=== PATIENT | female | born 1940 | race Caucasian/White ===

== ENCOUNTER 2021-07-31 18:58 | Observation (INO) | payer OTHER ==
[2021-07-31 19:51] LABS: Absolute Lymphocytes (CBC) 1.2 K/uL (0.7-4.9); Hematocrit 41.1 % (36.0-45.0); Lymphocytes % 15.5 % (15.3-44.8); MPV 8.9 fL (7.6-11.3); RBC Red Blood Cell Count 4.41 M/uL (3.86-4.86)
[2021-07-31 19:55] LABS: Protime INR 0.94
[2021-07-31 20:03] LABS: BUN Blood Urea Nitrogen 17 mg/dL (7-18); Bicarbonate 25 mmol/L (21-32); Glucose Level 105 mg/dL (74-106); Potassium 3.8 mmol/L (3.5-5.1); Sodium Level 136 mmol/L (136-145)
--- NOTE | 2021-07-31 20:34 | RAD REPORT ---
EXAM DESCRIPTION: CT - Ct Stroke Brain Wo Cont - 07/31/2021 8:27 pm CLINICAL HISTORY: Slurred speech/CVA COMPARISON: none TECHNIQUE: Computed axial tomography of the head was obtained. All CT scans are performed using dose optimization technique as appropriate and may include automated exposure control or mA/KV adjustment according to patient size. FINDINGS: An intracranial bleed is not seen . The ventricles are normal in caliber. No extra-axial fluid collection is noted. No significant hypodense areas within the brain seen Fluid within the sinuses/ mastoids is not seen. IMPRESSION: No acute intracranial abnormality is seen. If patient's symptoms persist MRI of the bra in would be recommended. Arie of the emergency room was notified at 8:30 p.m. July 31, 2021
--- NOTE | 2021-07-31 20:43 | RAD REPORT ---
EXAM DESCRIPTION: Annetta Angio07/31/2021 8:27 pm CLINICAL HISTORY: Slurred speech/CVA COMPARISON: None TECHNIQUE: 50 cc Isovue 370 was administered intravenously. 3D MIP reconstruction performed All CT scans are performed using dose optimization technique as appropriate and may include automated exposure control or mA/KV adjustment according to patient size. FINDINGS: Mild narrowing proximal right subclavian artery. Mild plaque within the common carotid, internal carotid and external carotid arteries bilaterally. Vertebral arteries are codominant. No significant abnormality displayed. No dissection seen. IMPRESSION: Mild plaque within the carotid arteries NASCET criteria used. Mild 0-49% stenosis Moderate 50-69% stenosis Severe 70-99% stenosis
--- NOTE | 2021-07-31 20:44 | RAD REPORT ---
EXAM DESCRIPTION: CTHead angio07/31/2021 8:27 pm CLINICAL HISTORY: CVA/slurred speech COMPARISON: None TECHNIQUE: CT angiogram of the head was obtained. 3D MIPS reconstruction performed. All CT scans are performed using dose optimization technique as appropriate and may include automated exposure control or mA/KV adjustment according to patient size. FINDINGS: Mild plaque within the distal internal carotid arteries. The basilar, anterior cerebral, middle cerebral and posterior cerebral arteries are normal caliber. An aneurysm is not seen. A significant stenosis is not noted. IMPRESSION: No significant abnormality is displayed
--- NOTE | 2021-07-31 20:45 | RAD REPORT ---
EXAM DESCRIPTION: Sandra Single View07/31/2021 8:17 pm CLINICAL HISTORY: tia COMPARISON: none FINDINGS: The lungs appear clear of acute infiltrate. The heart is mildly enlarged IMPRESSION: No acute abnormalities displayed
--- NOTE | 2021-07-31 21:11 | ER ---
Nurse's Notes [facility] Name: Janene Sierra Age: 80 yrs Sex: Female : 1940 Arrival Date: 07/31/2021 Time: 19:04 Bed 5 Private MD: Diagnosis: Transient cerebral ischemic attack, unspecified;Weakness Presentation: 07/31 19:11 Chief complaint: Patient's son or daughter states: "We think she had a mini stoke. She as6 speech was slurred, and her left side of her mouth was drooping. All the symptoms stopped now" pt being seen by Dr. Mcintyre in triage. Coronavirus screen: At this time, the client does not indicate any symptoms associated with coronavirus-19. Ebola Screen: No symptoms or risks identified at this time. No acute neurological deficit is noted. Initial Sepsis Screen: Does the patient meet any 2 criteria? No. Patient's initial sepsis screen is negative. Does the patient have a suspected source of infection? No. Patient's initial sepsis screen is negative. Risk Assessment: Do you want to hurt yourself or someone else? Patient reports no desire to harm self or others. Onset of symptoms was July 31, 2021 at 17:00. 19:11 Method Of Arrival: Wheelchair as6 19:11 Acuity: YULIA 3 as6 Historical: - Allergies: 19:20 Codeine; as6 - Home Meds: 19:20 levothyroxine 50 mcg tab 1 tab once daily [Active]; "blood pressure" [Active]; as6 - PMHx: 19:20 Hypothyroidism; Hypertensive disorder; Arthritis; as6 - PSHx: 19:20 None; as6 - Immunization history:: Client reports having NOT received the Covid vaccine. - Social history:: Smoking status: Patient denies any tobacco usage or history of. - Family history:: not pertinent. - Hospitalizations: : No recent hospitalization is reported. Screenin:37 Abuse screen: Denies threats or abuse. Nutritional screening: No deficits noted. jb4 Tuberculosis screening: No symptoms or risk factors identified. Fall Risk None identified. Assessment: 21:37 VAN Scoring: Arm Drift: Patients demonstrates NO arm weakness. Patient is VAN Negative. jb4 Patient has been NPO before screening. The patient is alert, and able to follow commands. The patient does not exhibit slurred or garbled speech. The patient is not exhibiting difficulty speaking. The patient is exhibiting difficulty understanding words. The patient is unable to swallow own secretions without drooling or the need for suction. Patient tolerated one teaspoon of water. No drooling, immediate coughing, gurgling, or clearing of the throat was noted. The patient tolerated 90mL of water. No drooling, immediate coughing, gurgling, or clearing of the throat was noted. The patient passed the bedside swallow screening. Oral medications may be given as ordered. Contact Physician for further diet orders. Provider notified of bedside swallow screening results: Joshua Mcintyre MD. 21:37 General: Appears in no apparent distress. comfortable, Behavior is calm, cooperative, jb4 appropriate for age. Pain: Denies pain. Neuro: Level of Consciousness is awake, alert, obeys commands, Oriented to person, place, time, situation. Cardiovascular: Patient's skin is warm and dry. Respiratory: Airway is patent Respiratory effort is even, unlabored, Respiratory pattern is regular, symmetrical. GI: No signs and/or symptoms were reported involving the gastrointestinal system. : No signs and/or symptoms were reported regarding the genitourinary system. EENT: No signs and/or symptoms were reported regarding the EENT system. Derm: Skin is intact, Skin is pink, warm \\T\\ dry. Musculoskeletal: Circulation, motion, and sensation intact. Range of motion: intact in all extremities. 21:37 T-PA (Activase) Screening: Contraindications: Rapidly improving condition or minor jb4 deficit: Yes. 23:33 Reassessment: Patient appears in no apparent distress at this time. Patient and/or jb4 family updated on plan of care and expected duration. Pain level reassessed. Patient is alert, oriented x 3, equal unlabored respirations, skin warm/dry/pink. Vital Signs: 19:11 BP 158 / 63; Pulse 61; Resp 18; Temp 98.1(O); Pulse Ox 98% on R/A; Weight 54.43 kg (R); as6 Height 5 ft. 1 in. (154.94 cm) (R); Pain 0/10; 23:33 BP 161 / 69; Pulse 78; Resp 16; Pulse Ox 100% on R/A; jb4 19:11 Body Mass Index 22.67 (54.43 kg, 154.94 cm) as6 NIH Stroke Scale Scores: 19:29 NIHSS Score: 0 rn 22:19 NIHSS Score: 0 jb4 ED Course: 19:04 Patient arrived in ED. ja2 19:08 Jonathan Mcintyre MD is Attending Physician. rn 19:20 Triage completed. as6 19:22 Arm band placed on. as6 19:35 Inserted saline lock: 20 gauge in right antecubital area, using aseptic technique. as6 Blood collected. 19:40 EKG completed in triage. Results shown to MD. as6 19:40 Ptt, Activated Sent. as6 19:40 Protime (+inr) Sent. as6 19:40 CBC with Diff Sent. as6 19:40 Basic Metabolic Panel Sent. as6 20:18 Stroke CXR 1 View In Process Unspecified. EDMS 20:29 Ct Stroke Brain Wo Cont In Process Unspecified. EDMS 20:29 CT Head Angio In Process Unspecified. EDMS 20:29 CT Neck Angio In Process Unspecified. EDMS 21:09 Joshua Mcintyre MD is Hospitalizing Provider. rn 21:37 Patient has correct armband on for positive identification. Bed in low position. Call 4 light in reach. Side rails up X 1. monitoring specialist on. Pulse ox on. NIBP on. 21:53 José Luis Bates, PRECIOUS is Primary Nurse. jb4 23:33 No provider procedures requiring assistance completed. Patient admitted, IV remains in jb4 place. Administered Medications: 21:47 Drug: Aspirin 325 mg Route: PO; jb4 23:16 Follow up: Response: No adverse reaction jb4 21:47 Drug: foLIC Acid 1 mg Route: IVPB; Site: right antecubital; jb4 23:16 Follow up: Response: No adverse reaction; IV Status: Completed infusion jb4 23:32 Drug: Melatonin 5 mg Route: PO; jb4 08/01 00:00 Follow up: Response: No adverse reaction page hospital Outcome: 07/31 21:10 Decision to Hospitalize by Provider. rn 22:00 Admitted to ER Hold. Please see [facility] for further documentation. jb4 22:00 Condition: stable 22:00 Discharge instructions given to patient, Instructed on the need for admit, Demonstrated understanding of instructions. 08/01 15:11 Patient left the ED. ap3 NIH Stroke Scale - NIH Stroke Score Date: 07/31/2021 Time: 19:29 Total Score = 0 1a. Level of Consciousness (LOC) - 0(Alert) 1b. Level of Consciousness (LOC) (Month \\T\\ Age) - 0(Both) 1c. LOC Commands (Open \\T\\ Closes Eyes/Marketing Research Intern) - 0(Both) 2. Best Gaze (Lateral Gaze Paresis) - 0(Normal) 3. Visual Field Loss - 0(No visual loss) 4. Facial Palsy - 0(Normal) 5a. Left Arm: Motor (10-second hold) - 0(No drift) 5b. Right Arm: Motor (10-second hold) - 0(No drift) 6a. Left Leg: Motor (5-second hold - always test supine) - 0(No drift) 6b. Right Leg: Motor (5-second hold - always test supine) - 0(No drift) 7. Limb Ataxia (finger/nose \\T\\ heel/ward - test with eyes open) - 0(Absent) 8. Sensory Loss (pinprick arms/legs/face) - 0(Normal) 9. Best Language: Aphasia (description/naming/reading) - 0(No aphasia) 10. Dysarthria (speech clarity - read or repeat words) - 0(Normal) 11. Extinction and Inattention (visual/tactile/auditory/spatial/personal) - 0(No abnormality) Initials: precious NIH Stroke Scale - NIH Stroke Score Date: 07/31/2021 Time: 22:19 Total Score = 0 1a. Level of Consciousness (LOC) - 0(Alert) 1b. Level of Consciousness (LOC) (Month \\T\\ Age) - 0(Both) 1c. LOC Commands (Open \\T\\ Closes Eyes/Marketing Research Intern) - 0(Both) 2. Best Gaze (Lateral Gaze Paresis) - 0(Normal) 3. Visual Field Loss - 0(No visual loss) 4. Facial Palsy - 0(Normal) 5a. Left Arm: Motor (10-second hold) - 0(No drift) 5b. Right Arm: Motor (10-second hold) - 0(No drift) 6a. Left Leg: Motor (5-second hold - always test supine) - 0(No drift) 6b. Right Leg: Motor (5-second hold - always test supine) - 0(No drift) 7. Limb Ataxia (finger/nose \\T\\ heel/ward - test with eyes open) - 0(Absent) 8. Sensory Loss (pinprick arms/legs/face) - 0(Normal) 9. Best Language: Aphasia (description/naming/reading) - 0(No aphasia) 10. Dysarthria (speech clarity - read or repeat words) - 0(Normal) 11. Extinction and Inattention (visual/tactile/auditory/spatial/personal) - 0(No abnormality) Initials: jb4 Signatures: Dispatcher [employer] EDMS Jonathan Mcintyre MD MD rn Bryson, James RN RN jb4 Kate Burris RN RN criss3 Luz Maria Kelley Ashby, RN RN as6
--- NOTE | 2021-07-31 21:11 | EDPHYS ---
Physician Documentation [facility] Name: Janene Sierra Age: 80 yrs Sex: Female : 1940 Arrival Date: 07/31/2021 Time: 19:04 Bed 5 Private MD: ED Physician Jonathan Mcintyre HPI: 07/31 19:31 This 80 yrs old Female presents to ER via Wheelchair with complaints of S/S of Possible rn Stroke. 19:31 The patient's problem is reported as a facial droop, on right, weakness, in the left rn upper extremity, in the right side of face. Onset: The symptoms/episode began/occurred at 17:00. Duration: This was a single incident. The symptoms are alleviated by nothing. The symptoms are aggravated by nothing. Associated signs and symptoms: Pertinent positives: weakness, Pertinent negatives: abdominal pain, ataxia, chest pain, confusion, headache, seizure. Severity of symptoms: At their worst the symptoms were moderate in the emergency department the symptoms have resolved. The patient has not experienced similar symptoms in the past. The patient has not recently seen a physician. Pt reports possible "mini stroke", onset was 5pm today, family noticed slurred speech, right lower facial droop, left arm weakness, was unable to lift left arm. Did not try to walk so unaware if had leg weakness. NO trauma. No headache. No chest pain. NO previous CVA or WA. No blood thinners. . Historical: - Allergies: 19:20 Codeine; as6 - Home Meds: 19:20 levothyroxine 50 mcg tab 1 tab once daily [Active]; "blood pressure" [Active]; as6 - PMHx: 19:20 Hypothyroidism; Hypertensive disorder; Arthritis; as6 - PSHx: 19:20 None; as6 - Immunization history:: Client reports having NOT received the Covid vaccine. - Social history:: Smoking status: Patient denies any tobacco usage or history of. - Family history:: not pertinent. - Hospitalizations: : No recent hospitalization is reported. ROS: 19:31 Constitutional: Negative for fever, chills, and weight loss, Eyes: Negative for injury, rn pain, redness, and discharge, Neck: Negative for injury, pain, and swelling, Cardiovascular: Negative for chest pain, palpitations, and edema, Respiratory: Negative for shortness of breath, cough, wheezing, and pleuritic chest pain, Abdomen/GI: Negative for abdominal pain, nausea, vomiting, diarrhea, and constipation, Back: Negative for injury and pain, MS/Extremity: Negative for injury and deformity, Skin: Negative for injury, rash, and discoloration, Neuro: Negative for headache, numbness, tingling, and seizure Exam: 19:31 Constitutional: This is a well developed, well nourished patient who is awake, alert, rn and in no acute distress. Head/Face: Normocephalic, atraumatic. Eyes: Periorbital areas with no swelling, redness, or edema. Cardiovascular: Regular rate and rhythm. No pulse deficits. Respiratory: No increased work of breathing, no retractions or nasal flaring. Abdomen/GI: Soft, non-tender Skin: Warm, dry MS/ Extremity: Pulses equal, no cyanosis. Neuro: Awake and alert, GCS 15, oriented to person, place, time, and situation. Cranial nerves II-XII grossly intact. Motor strength 5/5 in all extremities. Sensory grossly intact. Cerebellar exam normal. Vital Signs: 19:11 BP 158 / 63; Pulse 61; Resp 18; Temp 98.1(O); Pulse Ox 98% on R/A; Weight 54.43 kg (R); as6 Height 5 ft. 1 in. (154.94 cm) (R); Pain 0/10; 23:33 BP 161 / 69; Pulse 78; Resp 16; Pulse Ox 100% on R/A; jb4 19:11 Body Mass Index 22.67 (54.43 kg, 154.94 cm) as6 NIH Stroke Scale Scores: 19:29 NIHSS Score: 0 rn 22:19 NIHSS Score: 0 jb4 MDM: 19:08 Patient medically screened. rn 21:08 Differential diagnosis: CVA, TIA, metabolic disorder. Data reviewed: vital signs, rn nurses notes, lab test result(s), EKG, radiologic studies, CT scan, and as a result, I will admit patient. Counseling: I had a detailed discussion with the patient and/or guardian regarding: the historical points, exam findings, and any diagnostic results supporting the discharge/admit diagnosis, lab results, radiology results, the need for further work-up and treatment in the hospital. Response to treatment: the patient's condition has returned to base line, the patient is now symptom free, and as a result, I will discharge patient. Admission orders: after a detailed discussion of the patient's condition and case, the admit orders are written by me. ED course: No TPA/TNK indicated given complete resolution of symptoms. CTA head and neck neg for LVO. Will admit to hospitalist for TIA w/u.. 07/31 19:23 Order name: Basic Metabolic Panel; Complete Time: 21: rn 07/31 19:23 Order name: CBC with Diff; Complete Time: 21: rn 07/31 19:23 Order name: Protime (+inr); Complete Time: : rn 07/31 19:23 Order name: Ptt, Activated; Complete Time: : rn 08/01 02:12 Order name: COVID-19/FLU A+B (Document "Date of Onset" if Symptomatic) tw5 08/01 03:21 Order name: COVID-19/FLU A+B EDIL 07/31 19:23 Order name: Stroke CXR 1 View; Complete Time: 21: rn 07/31 19:25 Order name: CT Head Angio; Complete Time: 21: rn 07/31 19:25 Order name: CT Neck Angio; Complete Time: 21: rn 07/31 19:27 Order name: Ct Stroke Brain Wo Cont; Complete Time: 21: EDIL 08/01 04:07 Order name: CBC with Automated Diff EDIL 08/01 04:18 Order name: Comprehensive Metabolic Panel EDIL 08/01 04:18 Order name: Lipid Profile EDIL 07/31 19:23 Order name: EKG; Complete Time: 19:23 rn 07/31 19:23 Order name: Accucheck; Complete Time: 21:54 rn 07/31 19:23 Order name: Cardiac monitoring; Complete Time: 21:39 rn 07/31 19:23 Order name: EKG - Nurse/Tech; Complete Time: 19:39 rn 07/31 19:23 Order name: IV Saline Lock; Complete Time: 19:40 rn 07/31 19:23 Order name: Labs collected and sent; Complete Time: 19:40 rn 07/31 19:23 Order name: NPO; Complete Time: 21:39 rn 07/31 19:23 Order name: O2 Per Protocol; Complete Time: 21:39 rn 07/31 19:23 Order name: O2 Sat Monitoring; Complete Time: 21:39 rn 07/31 19:23 Order name: Stroke Swallow Screen; Complete Time: 21:39 rn 08/01 09:13 Order name: MRI EDMS Administered Medications: 21:47 Drug: Aspirin 325 mg Route: PO; jb4 23:16 Follow up: Response: No adverse reaction jb4 21:47 Drug: foLIC Acid 1 mg Route: IVPB; Site: right antecubital; jb4 23:16 Follow up: Response: No adverse reaction; IV Status: Completed infusion jb4 23:32 Drug: Melatonin 5 mg Route: PO; jb4 08/01 00:00 Follow up: Response: No adverse reaction jb4 Disposition Summary: 07/31/21 21:10 Hospitalization Ordered Hospitalization Status: Observation rn Provider: Joshua Mcintyre rn Condition: Stable rn Problem: new rn Symptoms: have improved rn Bed/Room Type: Standard rn Location: Telemetry/MedSurg (observation)(08/01/21 12:48) bd Room Assignment: (08/01/21 13:17) bd Diagnosis - Transient cerebral ischemic attack, unspecified rn - Weakness rn Forms: - Medication Reconciliation Form rn - SBAR form rn NIH Stroke Scale - NIH Stroke Score Date: 07/31/2021 Time: 19:29 Total Score = 0 1a. Level of Consciousness (LOC) - 0(Alert) 1b. Level of Consciousness (LOC) (Month \\T\\ Age) - 0(Both) 1c. LOC Commands (Open \\T\\ Closes Eyes/Noxious Weeds And Pest Inspector) - 0(Both) 2. Best Gaze (Lateral Gaze Paresis) - 0(Normal) 3. Visual Field Loss - 0(No visual loss) 4. Facial Palsy - 0(Normal) 5a. Left Arm: Motor (10-second hold) - 0(No drift) 5b. Right Arm: Motor (10-second hold) - 0(No drift) 6a. Left Leg: Motor (5-second hold - always test supine) - 0(No drift) 6b. Right Leg: Motor (5-second hold - always test supine) - 0(No drift) 7. Limb Ataxia (finger/nose \\T\\ heel/ward - test with eyes open) - 0(Absent) 8. Sensory Loss (pinprick arms/legs/face) - 0(Normal) 9. Best Language: Aphasia (description/naming/reading) - 0(No aphasia) 10. Dysarthria (speech clarity - read or repeat words) - 0(Normal) 11. Extinction and Inattention (visual/tactile/auditory/spatial/personal) - 0(No abnormality) Initials: sheila NIH Stroke Scale - NIH Stroke Score Date: 07/31/2021 Time: 22:19 Total Score = 0 1a. Level of Consciousness (LOC) - 0(Alert) 1b. Level of Consciousness (LOC) (Month \\T\\ Age) - 0(Both) 1c. LOC Commands (Open \\T\\ Closes Eyes/Noxious Weeds And Pest Inspector) - 0(Both) 2. Best Gaze (Lateral Gaze Paresis) - 0(Normal) 3. Visual Field Loss - 0(No visual loss) 4. Facial Palsy - 0(Normal) 5a. Left Arm: Motor (10-second hold) - 0(No drift) 5b. Right Arm: Motor (10-second hold) - 0(No drift) 6a. Left Leg: Motor (5-second hold - always test supine) - 0(No drift) 6b. Right Leg: Motor (5-second hold - always test supine) - 0(No drift) 7. Limb Ataxia (finger/nose \\T\\ heel/ward - test with eyes open) - 0(Absent) 8. Sensory Loss (pinprick arms/legs/face) - 0(Normal) 9. Best Language: Aphasia (description/naming/reading) - 0(No aphasia) 10. Dysarthria (speech clarity - read or repeat words) - 0(Normal) 11. Extinction and Inattention (visual/tactile/auditory/spatial/personal) - 0(No abnormality) Initials: jb4 Signatures: Dispatcher [employer] EDKatja Abdullahi Roman, MD MD rn Nikko, Abdulaziz, SMALLTALK DEVELOPER-C SMALLTALK DEVELOPER-Cla1 Doreen Nguyen, José Luis Cornelius RN, RN RN jb4 Celestine Cazares RN RN as6 Corrections: (The following items were deleted from the chart) 07/31 22:56 21:10 Telemetry/MedSurg (observation) sheila underwood 22:56 21:10 sheila underwood 08/01 12:48 07/31 22:56 [facility] ER HOLD cg bd 08/01 12:48 07/31 22:56 ERHOLD- cg bd 08/01 13:17 12:48 408 bd bd
[2021-07-31] MEDS ORDERED: ASPIRIN 325 MG TAB ONE (21:47)
[2021-07-31] MEDS ORDERED: FOLIC ACID 5 MG/ML VIAL ONE (21:48)
--- NOTE | 2021-07-31 23:12 | P.HP ---
Certification for Inpatient Patient admitted to: Observation With expected LOS: <2 Midnights Patient will require the following post-hospital care: None Practitioner: I am a practitioner with admitting privileges, knowledge of patient current condition, hospital course, and medical plan of care. Services: Services provided to patient in accordance with Admission requirements found in Title 42 Section 412.3 of the Code of Federal Regulations Patient History Date of Service: 07/31/21 Reason for admission: TIA History of Present Illness: 80-year-old female with history of hypertension, hypothyroidism presents the emergency department for strokelike symptoms. Patient reports noticing slurred speech around 1700 today that lasted for about 20 to 30 minutes, family were also there state that they noted she had left-sided facial droop, left upper extremity weakness and slurred speech that lasted for around 30 minutes. Unknown involvement of the lower extremities patient did not attempt to walk. Symptoms did resolve completely patient is back to her baseline neurologically. She was evaluated in the emergency department with CT brain without contrast, chest x-ray, head and neck CTA which were only significant for mild plaque of the distal internal carotid arteries. Patient was given aspirin, folic acid ED provider wishes to admit to observation for suspected TIA. - Past Medical/Surgical History -: Hypertension -: Hypothyroid -: Arthritis -: None Psychosocial/ Personal History: Patient lives at home with her family - Family History Mother -: Cancer - Social History Smoking Status: Never smoker Alcohol use: No CD- Drugs: No Caffeine use: Yes Place of Residence: Home Review of Systems 10-point ROS is otherwise unremarkable Neurological: As per HPI Physical Examination - Physical Exam General: Alert, In no apparent distress, Oriented x3 HEENT: Atraumatic, PERRLA, Mucous membr. moist/pink, EOMI, Sclerae nonicteric Neck: Supple, 2+ carotid pulse no bruit, No LAD, Without JVD or thyroid abnormality Respiratory: Clear to auscultation bilaterally, Normal air movement Cardiovascular: Regular rate/rhythm, Normal S1 S2 Gastrointestinal: Normal bowel sounds, No tenderness Musculoskeletal: No tenderness Integumentary: No rashes Neurological: Normal gait, Normal speech, Normal strength at 5/5 x4 extr, Normal tone, Normal affect Lymphatics: No axilla or inguinal lymphadenopathy - Studies Laboratory Data (last 24 hrs) 07/31/21 19:38: PT 10.3, INR 0.94, APTT 26.8 07/31/21 19:38: WBC 7.9, Hgb 13.9, Hct 41.1, Plt Count 273 07/31/21 19:38: Sodium 136, Potassium 3.8, BUN 17, Creatinine 0.58, Glucose 105 Assessment and Plan - Plan Assessment: TIA Hypertension Hypothyroid Plan: TIA: Neurology consult in place, aspirin, statin, folic acid ordered. Patient currently back at baseline without any deficits. CT head/neck angio negative for occlusive findings only suggest mild stenosis. Echocardiogram ordered appreciate further input from neurology. Hypertension: Continue home medications watch blood pressure throughout h ospitalization to ensure adequate control of hypertension Hypothyroid: Continue home medication. DVT PPX: Lovenox Code status: Full Discharge Plan: Home Plan to discharge in: 24 Hours - Advance Directives Does patient have a Living Will: No Does patient have a Durable POA for Healthcare: No - Code Status/Comfort Care Code Status Assessed: Yes (Full code) Critical Care: No Time Spent Managing Pts Care (In Minutes): 55
[2021-07-31] MEDS ORDERED: MELATONIN 5 MG TABLET PO ONE (23:21)
[2021-08-01] MEDS ORDERED: MELATONIN 5 MG TABLET PO PRN (00:30)
[2021-08-01] MEDS ORDERED: ONDANSETRON 4 MG/2 ML VIAL IV PRN (00:30)
[2021-08-01 02:20] VITALS: O2SAT 99; BMI 21.9
[2021-08-01 03:21] LABS: SARS-COV-2 RT PCR NEGATIVE (NEGATIVE)
[2021-08-01 04:05] LABS: Absolute Lymphocytes (CBC) 1.9 K/uL (0.7-4.9); Hematocrit 39.8 % (36.0-45.0); Lymphocytes % 27.3 % (15.3-44.8); MPV 8.8 fL (7.6-11.3); RBC Red Blood Cell Count 4.32 M/uL (3.86-4.86)
[2021-08-01 04:17] LABS: ALT/SGPT 17 U/L (12-78); AST/SGOT 7 U/L (15-37); Albumin 3.4 g/dL (3.4-5.0); Alkaline Phosphatase 60 U/L (45-117); BUN Blood Urea Nitrogen 13 mg/dL (7-18); Bicarbonate 27 mmol/L (21-32); Bilirubin Total 0.3 mg/dL (0.2-1.0); Glucose Level 92 mg/dL (74-106); HDL Cholesterol 46 mg/dL (40-60); LDL Cholesterol, Calculated 148 mg/dL (<130); Potassium 3.8 mmol/L (3.5-5.1); Protein, Total 6.2 g/dL (6.4-8.2); Sodium Level 139 mmol/L (136-145)
[2021-08-01] MEDS ORDERED: FOLIC ACID 1 MG TABLET ONE (07:40)
[2021-08-01] MEDS ORDERED: ASPIRIN EC 81 MG TAB PO ONE (07:41)
[2021-08-01] MEDS ORDERED: ENOXAPARIN 40 MG/0.4 ML SQ ONE (07:41)
[2021-08-01] MEDS ORDERED: ENOXAPARIN 40 MG/0.4 ML SQ SCH (09:00)
[2021-08-01] MEDS ORDERED: FOLIC ACID 1 MG TABLET PO SCH (09:00)
[2021-08-01] MEDS ORDERED: ASPIRIN EC 81 MG TAB PO SCH (09:00)
--- NOTE | 2021-08-01 09:12 | RAD REPORT ---
EXAM DESCRIPTION: MRI - Brain Wo Cont - 08/01/2021 8:52 am CLINICAL HISTORY: Left weakness and numbness COMPARISON: Head CT July 31, 2021 TECHNIQUE: Axial, sagittal, and coronal magnetic resonance images of the brain were obtained. FINDINGS: Small area of abnormal signal within the right basal ganglia/internal capsule has the appe arance of old lacunar infarction. Diffusion-weighted/ADC mapping does not reveal evidence of acute infarction. The ventricles are normal caliber. An extra-axial fluid collection is not noted. Fluid within the sinuses/mastoids is not seen. Mucus retention cyst right maxillary sinus IMPRESSION: No acute intracranial abnormality noted
[2021-08-01 12:05] VITALS: BP 150/49; TEMP 97.6
--- NOTE | 2021-08-01 13:15 | P.DS ---
Admission Date: 07/31/21 Discharge Date: 08/01/21 Disposition: ROUTINE DISCHARGE Discharge Condition: GOOD Reason for Admission: TIA Procedures: Problem List TIA Hypertension Hypothyroid HLD Brief History of Present Illness: 80yo F, PMH: HTN, hypothyroidism. Presented to ED after sudden slurred speech lastign for ~20-30 minutes. Associated with left-sided facial droop, upper extremity weakness, and slurred speech. Symptoms resolved completely. ED evaluation with chest x-ray, CT brain, CTA head/neck were all WNL. Patient was outside of window for tpa. Hospital Course: Patient was evaluated by CT brain, CTA Head and neck which were all negative for acute findings. MRI brain noted small area of abnormal signal within the right basal ganglia/internal capsule that is most consistent with an old lacunar infarction. Patient symptoms resolved and did not recur. Suspect patient had a TIA. Case was discussed with neurology. Patient deemed stable for discharge home. Prescriptions for aspirin, atorvastatin, and folic acid were sent. Call [phone] for any questions regarding hospital stay Follow-up with neurology, Dr. Villalba in 1 month. Please call his office to schedule the appointment. Vital Signs/Physical Exam: Temp Pulse Resp BP Pulse Ox 97.6 F 62 18 150/49 H 97 08/01/21 12:00 08/01/21 12:00 08/01/21 12:00 08/01/21 12:00 08/01/21 12:00 Physical Exam General: Alert, In no apparent distress, Oriented x3 HEENT: Atraumatic, EOMI, Sclerae nonicteric Respiratory: Clear to auscultation bilaterally, Normal air movement Cardiovascular: Regular rate/rhythm, Normal S1 S2 Musculoskeletal: No tenderness Integumentary: No rashes Neurological: Normal speech, Normal strength at 5/5 x4 extr Laboratory Data at Discharge: WBC 6.8 K/uL (4.3-10.9) 08/01/21 03:25 Hgb 13.7 g/dL (12.0-15.0) 08/01/21 03:25 Hct 39.8 % (36.0-45.0) 08/01/21 03:25 Plt Count 253 K/uL (152-406) 08/01/21 03:25 PT 10.3 SECONDS (9.5-12.5) 07/31/21 19:38 INR 0.94 07/31/21 19:38 APTT 26.8 SECONDS (24.3-36.9) 07/31/21 19:38 Sodium 139 mmol/L (136-145) 08/01/21 03:25 Potassium 3.8 mmol/L (3.5-5.1) 08/01/21 03:25 BUN 13 mg/dL (7-18) 08/01/21 03:25 Creatinine 0.60 mg/dL (0.55-1.3) 08/01/21 03:25 Glucose 92 mg/dL (74-106) 08/01/21 03:25 Total Bilirubin 0.3 mg/dL (0.2-1.0) 08/01/21 03:25 AST 7 U/L (15-37) L 08/01/21 03:25 ALT 17 U/L (12-78) 08/01/21 03:25 Alkaline Phosphatase 60 U/L (45-117) 08/01/21 03:25 Triglycerides 107 mg/dL (<150) 08/01/21 03:25 Cholesterol 215 mg/dL (<200) H 08/01/21 03:25 HDL Cholesterol 46 mg/dL (40-60) 08/01/21 03:25 Cholesterol/HDL Ratio 4.67 08/01/21 03:25 Home Medications: Aspirin [Aspirin EC 81 MG] 81 mg PO DAILY 30 Days #30 tablet. 08/01/21 Atorvastatin Calcium [Lipitor] 40 mg PO BEDTIME 30 Days #30 tab 08/01/21 Folic Acid 1 mg PO DAILY 30 Days #30 tablet 08/01/21 New Medications: Aspirin [Aspirin EC 81 MG] 81 mg PO DAILY 30 Days #30 tablet. Folic Acid 1 mg PO DAILY 30 Days #30 tablet Atorvastatin Calcium [Lipitor] 40 mg PO BEDTIME 30 Days #30 tab Diet: AHA Activity: Ad yesy Followup: NONE,NONE [Primary Care Provider] - Time spent managing pt's care (in minutes): 45
[2021-08-01] MEDS ORDERED: ATORVASTATIN 40 MG TAB PO SCH (21:00)
--- NOTE | 2021-08-02 08:32 | ECHO ---
HEIGHT: 5 ft 1 in WEIGHT: 116 lb 0 oz DATE OF STUDY: 08/01/[address]: Abdulaziz El NP 2-DIMENSIONAL: YES M.MODE: YES DOPPLER: YES COLOR FLOW: YES TDS: PORTABLE: YES DEFINITY: BUBBLE STUDY: DIAGNOSIS: TRANSIENT ISCHEMIC ATTACK CARDIAC HISTORY: CATHERIZATION: NO SURGERY: NO PROSTHETIC VALVE: NO PACEMAKER: NO MEASUREMENTS (cm) DIASTOLIC (NORMALS) SYSTOLIC (NORMALS) IVSd 1.1 (0.6-1.2) LA Diam 3.7 (1.9-4.0) LVEF 64% LVIDd 4.3 (3.5-5.7) LVIDs 2.8 (2.0-3.5) %FS 34% LVPWd 1.1 (0.6-1.2) Ao Diam 2.2 (2.0-3.7) 2 DIMENSIONAL ASSESSMENT: RIGHT ATRIUM: NORMAL LEFT ATRIUM: NORMAL RIGHT VENTRICLE: NORMAL LEFT VENTRICLE: NORMAL TRICUSPID VALVE: MODERATE TRICUSPID REGURGITATION MITRAL VALVE: MILD MITRAL REGURGITATION PULMONIC VALVE: NORMAL AORTIC VALVE: MILD AORTIC INSUFFICIENCY PERICARDIAL EFFUSION: NONE AORTIC ROOT: NORMAL LEFT VENTRICULAR WALL MOTION: NORMAL DOPPLER/COLOR FLOW: SEE BELOW COMMENTS: NORMAL LEFT VENTRICULAR EJECTION FRACTION 60-65%. NORMAL WALL MOTION. MILD MITRAL REGURGITATION. MODERATE TRICUSPID REGURGITATION. MODERATE AORTIC INSUFFICIENCY. TECHNOLOGIST: ARACELI CANTRELL
== END 2021-08-01 15:10 | disposition home or self-care (01) ==
LOC: ER 18:58 → ERHOLD 23:16
PROVIDERS: ADMIT Hospitalist; ATTEND Hospitalist
DX: G45.9 Transient cerebral ischemic attack, unspecified (principal); R29.700 NIHSS score 0; I10 Essential (primary) hypertension; E03.9 Hypothyroidism, unspecified; E78.5 Hyperlipidemia, unspecified; M19.90 Unspecified osteoarthritis, unspecified site; Z79.899 Other long term (current) drug therapy; Z88.5 Allergy status to narcotic agent; Z28.310 Unvaccinated for COVID-19; Z20.822 Contact with and (suspected) exposure to COVID-19; Z80.9 Family history of malignant neoplasm, unspecified
CPT/HCPCS: 96365; 93005; 93306; 85025 ×2; 80048; 36415; 85610; 80061; 85730; 80053; 0240U; 70496; 70498; 70450; 71045; 70551; 99285; Q9967; J1650; G0378 ×2

== ENCOUNTER 2021-11-17 20:43 | Inpatient (IN) | payer OTHER ==
--- OUTSIDE RECORDS SUMMARY | 2021-11-17 20:46 | XMS REPORT | Continuity of Care Document ---
:1940 Author Organization [facility] t Address [address] [place] [address] Dr. Jansen [address] [place] [id number] Care Team Providers Name Role Phone CARMEN MILLER Attending Clinician Unavailable Problems This patient has no known problems. Allergies, Adverse Reactions, Alerts This patient has no known allergies or adverse reactions. Medications This patient has no known medications. Procedures This patient has no known procedures. Encounters Start End Encounter Admission Attending Care Care Encounter Source Date/Time Date/Time Type Type Clinicians Facility Department ID 2021-11-10 Outpatient NOHEMI MILLER [facility] [id number] Common 15:24:03 CARMEN [id number] [facility] Results This patient has no known results.
[2021-11-17 21:35] LABS: Absolute Lymphocytes (CBC) 1.1 K/uL (0.7-4.9); Hematocrit 43.1 % (36.0-45.0); MCV 93.2 fL (80-100); MPV 8.5 fL (7.6-11.3); RBC Red Blood Cell Count 4.62 M/uL (3.86-4.86)
[2021-11-17 21:40] LABS: Protime INR 1.05
[2021-11-17 21:54] LABS: Albumin 3.8 g/dL (3.4-5.0); Bilirubin Total 0.3 mg/dL (0.2-1.0); Magnesium 1.9 mg/dL (1.8-2.4); Potassium 3.7 mmol/L (3.5-5.1); Protein, Total 7.3 g/dL (6.4-8.2)
[2021-11-17] MEDS ORDERED: NA CHLORIDE 0.9% 2,000 ML ONE (22:15)
[2021-11-17] MEDS ORDERED: Levofloxacin500mg IV 500 MG/100 ML BAG IV ONE (22:15)
--- NOTE | 2021-11-17 22:22 | ER ---
Nurse's Notes [facility] Name: Janene Sierra Age: 80 yrs Sex: Female : 1940 Arrival Date: 11/17/2021 Time: 20:47 Bed 19 Private MD: Diagnosis: Pneumonia, unspecified organism;Unspecified atrial fibrillation Presentation: 11/17 20:55 Chief complaint: Patient states: "We just came from [facility] and they said she vc1 had new onset atrial fibrillation with RVR, and right lower lobe Pneumonia. They said they didn't have a sr. payroll manager so they couldn't treat her. She has been real SOB and unable to walk to the bathroom.". Coronavirus screen: Vaccine status: Patient reports being unvaccinated. fatigue, shortness of breath, The client reports previous COVID testing was negative. Date of collection: November 17, 2021 results are being brought by a family member or friend. Tested at [facility]. Ebola Screen: No symptoms or risks identified at this time. Initial Sepsis Screen: Does the patient meet any 2 criteria? RR > 20 per min. HR > 90 bpm. Yes Does the patient have a suspected source of infection? Yes: Productive cough/pneumonia If YES to both, name of provider notified: Christine JENSEN. Risk Assessment: Do you want to hurt yourself or someone else? Patient reports no desire to harm self or others. Onset of symptoms is unknown. 20:55 Method Of Arrival: Wheelchair vc1 20:55 Acuity: YULIA 3 vc1 21:05 Acuity: YULIA 2 hb Triage Assessment: 21:02 General: Appears in no apparent distress. uncomfortable, Behavior is calm, cooperative, vc1 appropriate for age. Pain: Denies pain. Neuro: Level of Consciousness is awake, alert, obeys commands, Oriented to person, place, time, situation, Appropriate for age. Cardiovascular: Capillary refill < 3 seconds Patient's skin is warm and dry. Respiratory: Airway Respiratory effort is even, unlabored, Respiratory pattern is regular, symmetrical. GI: No deficits noted. : No deficits noted. Derm: No deficits noted. Musculoskeletal: No deficits noted. Historical: - Allergies: 21:02 Codeine; vc1 - Home Meds: 21:02 "blood pressure" [Active]; levothyroxine 50 mcg tab 1 tab once daily [Active]; vc1 - PMHx: 21:02 Arthritis; Hypertensive disorder; Hypothyroidism; vc1 - PSHx: 21:02 Tonsillectomy; vc1 - Immunization history:: Adult Immunizations up to date. - Social history:: Smoking status: Patient denies any tobacco usage or history of. Screenin:04 Abuse screen: Denies threats or abuse. Nutritional screening: No deficits noted. vc1 Tuberculosis screening: No symptoms or risk factors identified. Fall Risk No fall in past 12 months (0 pts). Secondary diagnosis (15 points) impaired mobility, No IV (0 pts). Ambulatory Aid- Crutches/Cane/Walker (15 pts). Gait- Impaired (20 pts.). Mental Status- Oriented to own ability (0 pts). Total Gomes Fall Scale indicates High Risk Score (45 or more points). Fall prevention measures have been instituted. Side Rails Up X 2 Family Present and informed to notify staff if the need to leave the bedside. Assessment: 21:15 General: Appears in no apparent distress. Behavior is cooperative, anxious. Pain: hb Denies pain. Neuro: Level of Consciousness is awake, alert, obeys commands, Oriented to person, place, time, situation. Cardiovascular: Patient's skin is warm and dry. Rhythm is atrial fibrillation with rapid ventricular response. Respiratory: Reports mild SOB Respiratory effort is even, unlabored, Respiratory pattern is regular, symmetrical. GI: No signs and/or symptoms were reported involving the gastrointestinal system. : No signs and/or symptoms were reported regarding the genitourinary system. EENT: No signs and/or symptoms were reported regarding the EENT system. Derm: Skin is pink, warm \\T\\ dry. 22:31 Reassessment: Patient appears in no apparent distress at this time. Patient and/or hb family updated on plan of care and expected duration. Pain level reassessed. Patient is alert, oriented x 3, equal unlabored respirations, skin warm/dry/pink. Vital Signs: 20:55 BP 154 / 89; Pulse 142; Resp 29; Temp 98.9; Pulse Ox 95% ; Weight 58.06 kg; Height 5 vc1 ft. 1 in. (154.94 cm); Pain 0/10; 21:15 BP 153 / 105; Pulse 125; Resp 26; Pulse Ox 93% on R/A; hb 22:30 BP 197 / 94; Pulse 126; Resp 23; Pulse Ox 95% on R/A; hb 20:55 Body Mass Index 24.19 (58.06 kg, 154.94 cm) vc1 ED Course: 20:47 Patient arrived in ED. ja2 20:52 Christine Meng FNP-C [facility]. kb 20:52 Jonathan Mcintyre MD is Attending Physician. kb 21:02 Triage completed. vc1 21:04 Arm band placed on right wrist. vc1 21:05 Ingrid Pineda, RN is Primary Nurse. hb 21:46 Inserted saline lock: 20 gauge in right antecubital area, using aseptic technique. hb Blood collected. 21:57 Patient has correct armband on for positive identification. hb 22:14 XRAY Chest (1 view) In Process Unspecified. EDMS 22:21 Kameron Phillips MD is Hospitalizing Provider. kb 22:53 CT Chest For PE Angio In Process Unspecified. EDMS 08 07:00 Patient admitted, IV remains in place. aa5 07:00 No provider procedures requiring assistance completed. aa5 Administered Medications: 11/17 22:09 Drug: NS 0.9% (30 ml/kg) 30 ml/kg Route: IV; Rate: bolus; Site: right antecubital; hb 22:09 Drug: LevaQUIN (levofloxacin) 500 mg Volume: 100 ml; Route: IVPB; Infused Over: 60 hb mins; Site: right antecubital; 23:10 Follow up: Response: No adverse reaction; IV Status: Completed infusion; IV Intake: hb 100ml 22:30 Drug: Lopressor (metoprolol TARTRATE) 50 mg Route: PO; hb 23:54 Follow up: Response: No adverse reaction hb 22:30 Drug: Digoxin 0.5 mg Route: IVP; Site: right antecubital; hb 23:54 Follow up: Response: No adverse reaction hb 23:11 Drug: Lovenox (enoxaparin) 1 mg/kg Route: Sub-Q; Site: abdomen; hb 23:54 Follow up: Response: No adverse reaction hb Medication: 21:05 VIS not applicable for this client. vc1 Intake: 23:10 IV: 100ml; Total: 100ml. hb Outcome: 22:21 Decision to Hospitalize by Provider. kb 11/18 07:00 Admitted to ER Hold. Please see [facility] for further documentation. aa5 07:00 Condition: stable aa5 07:00 Instructed on the need for admit, Demonstrated understanding of instructions. 16:10 Patient left the ED. iw Signatures: Dispatcher [employer] EDChristine Seay, AUTOMOTIVE SALES SPECIALIST-C AUTOMOTIVE SALES SPECIALIST-Margret Juarez RN RN Aby Meade RN RN aa5 Ingrid Pineda RN RN Lu zMaria Morataya Vanessa RN RN vc1
--- NOTE | 2021-11-17 22:22 | EDPHYS ---
Physician Documentation [facility] Name: Janene Sierra Age: 80 yrs Sex: Female : 1940 Arrival Date: 11/17/2021 Time: 20:47 Bed 19 Private MD: ED Physician Jonathan Mcintyre HPI: 11/17 22:19 This 80 yrs old Female presents to ER via Wheelchair with complaints of PNEUMONIA. kb 22:18 Daughter states patient has had shortness of breath, wheezing and weakness so they went kb to [facility] today. Patient was diagnosed with new onset A. fib with RVR and right lower lobe pneumonia. Daughter states they were told that they did not have a commercial credit portfolio manager so they could not treat the patient and they needed to go to another hospital. I called [facility], patient was given Cardizem 20 mg IV, Rocephin 1 g IV and Zithromax 500 mg IV.. 22:19 The patient has shortness of breath at rest. Onset: The symptoms/episode began/occurred A couple of days ago. Duration: The symptoms are continuous. The patient's shortness of breath is aggravated by nothing, is alleviated by nothing. Associated signs and symptoms: Pertinent positives: non-productive cough. Severity of symptoms: At their worst the symptoms were moderate in the emergency department the symptoms are unchanged. The patient has not experienced similar symptoms in the past. The patient has been recently seen by a physician:. Historical: - Allergies: 21:02 Codeine; vc1 - Home Meds: 21:02 "blood pressure" [Active]; levothyroxine 50 mcg tab 1 tab once daily [Active]; vc1 - PMHx: 21:02 Arthritis; Hypertensive disorder; Hypothyroidism; vc1 - PSHx: 21:02 Tonsillectomy; vc1 - Immunization history:: Adult Immunizations up to date. - Social history:: Smoking status: Patient denies any tobacco usage or history of. ROS: 22:15 Constitutional: Negative for fever, chills, and weight loss. kb 22:15 Respiratory: Positive for shortness of breath, Negative for cough, dyspnea on exertion, hemoptysis, orthopnea, pleurisy, sputum production, wheezing. 22:15 Neuro: Positive for weakness. 22:15 All other systems are negative. Exam: 22:15 Constitutional: This is a well developed, well nourished patient who is awake, alert, kb and in no acute distress. Head/Face: Normocephalic, atraumatic. ENT: Moist Mucous membranes Respiratory: Respirations even and unlabored. No increased work of breathing. Talking in full sentences Abdomen/GI: Soft, non-tender. No distention Skin: Warm, dry with normal turgor. Normal color. MS/ Extremity: Pulses equal, no cyanosis. Neurovascular intact. Full, normal range of motion. Neuro: Awake and alert, GCS 15, oriented to person, place, time, and situation. Moves all extremities. Normal gait. Psych: Awake, alert, with orientation to person, place and time. Behavior, mood, and affect are within normal limits. 22:15 Cardiovascular: Rate: tachycardic, Rhythm: irregularly irregular, Pulses: no pulse deficits are appreciated, Edema: pedal edema. 22:15 ECG was reviewed by the Attending Physician. Vital Signs: 20:55 BP 154 / 89; Pulse 142; Resp 29; Temp 98.9; Pulse Ox 95% ; Weight 58.06 kg; Height 5 vc1 ft. 1 in. (154.94 cm); Pain 0/10; 21:15 BP 153 / 105; Pulse 125; Resp 26; Pulse Ox 93% on R/A; hb 22:30 BP 197 / 94; Pulse 126; Resp 23; Pulse Ox 95% on R/A; hb 20:55 Body Mass Index 24.19 (58.06 kg, 154.94 cm) vc1 MDM: 21:01 Patient medically screened. kb 21:57 Data reviewed: vital signs, nurses notes. Data interpreted: Pulse oximetry: on room air kb is 93 %. Interpretation: normal. 22:03 ED course: Severe sepsis criteria met at 2159. Source (A): Pneumonia; SIRS criteria kb (B): Tachycardia, tachypnea; end organ dysfunction (C): Elevated lactate. Lactate is greater than 4 so septic shock criteria also met at this time.. 22:11 Physician consultation: Nic Anderson MD was contacted at 22:11, regarding consult, kb patient's condition, and will see patient in inpatient room, would like medications started, digoxin 0.5mg IV now, lopressor 50mg po now then BID. 22:15 Counseling: I had a detailed discussion with the patient and/or guardian regarding: the kb historical points, exam findings, and any diagnostic results supporting the discharge/admit diagnosis, lab results, radiology results, the need for further work-up and treatment in the hospital. 22:18 Physician consultation: Abdulaziz JENSEN was contacted at 22:18, regarding admission, kb to the telemetry unit. patient's condition, and will see patient in ED. 22:20 ED course: Sepsis reevaluation complete. kb 11/17 21:02 Order name: CBC with Diff; Complete Time: 21:41 kb 11/17 21:02 Order name: D-Dimer; Complete Time: 21:58 kb 11/17 21:02 Order name: Magnesium; Complete Time: 22:00 kb 11/17 21:02 Order name: NT PRO-BNP; Complete Time: 22:00 kb 11/17 21:02 Order name: Troponin HS; Complete Time: 22:00 kb 11/17 21:02 Order name: Blood Culture Adult (2) kb 11/17 21:02 Order name: CMP; Complete Time: 22:00 kb 11/17 21:02 Order name: Lactate; Complete Time: 22:00 kb 11/17 21:02 Order name: Protime (+inr); Complete Time: 21:58 kb 11/17 21:02 Order name: Ptt, Activated; Complete Time: 21:58 kb 11/17 23:16 Order name: Urine Microscopic Only; Complete Time: 01:17 tw5 11/17 23:18 Order name: Urine Dipstick-Ancillary EDMS 11/18 00:17 Order name: Troponin High Sensitivity; Complete Time: 01:17 ke1 11/18 00:17 Order name: Lactate; Complete Time: 01:17 ke1 11/17 21:02 Order name: XRAY Chest (1 view); Complete Time: 22:49 kb 11/17 22:11 Order name: CT Chest For PE Angio kb 11/18 00:44 Order name: COVID-19 SARS RT PCR (Document "Date of Onset" if Symptomatic) tw5 11/18 03:35 Order name: CBC with Automated Diff EDMS 11/18 03:52 Order name: Comprehensive Metabolic Panel EDMS 11/18 03:52 Order name: Troponin High Sensitivity EDMS 11/18 03:52 Order name: Lipid Profile EDMS 11/18 03:52 Order name: T4 Free [facility] 11/18 03:52 Order name: Thyroid Stimulating Hormone [facility] 11/18 04:11 Order name: Hemoglobin A1c [facility] 11/18 11:57 Order name: Troponin High Sensitivity [facility] 11/17 21:02 Order name: EKG; Complete Time: 21:03 kb 11/17 21:02 Order name: Cardiac monitoring; Complete Time: 21:48 kb 11/17 21:02 Order name: EKG - Nurse/Tech; Complete Time: 21:48 kb 11/17 21:02 Order name: IV Saline Lock; Complete Time: 21:48 kb 11/17 21:02 Order name: Labs collected and sent; Complete Time: 21:48 kb 11/17 21:02 Order name: O2 Per Protocol; Complete Time: 21:48 kb 11/17 21:02 Order name: O2 Sat Monitoring; Complete Time: 21:48 kb 11/17 21:02 Order name: Accucheck; Complete Time: 21:48 kb 11/17 21:02 Order name: IV Saline Lock - Large Bore; Complete Time: 21:48 kb EC:15 Rate is 129 beats/min. Rhythm is irregularly irregular. QRS Martin is Normal. QRS kb interval is normal at 70 msec. QT interval is normal at 439 msec. Administered Medications: 22:09 Drug: NS 0.9% (30 ml/kg) 30 ml/kg Route: IV; Rate: bolus; Site: right antecubital; hb 22:09 Drug: LevaQUIN (levofloxacin) 500 mg Volume: 100 ml; Route: IVPB; Infused Over: 60 hb mins; Site: right antecubital; 23:10 Follow up: Response: No adverse reaction; IV Status: Completed infusion; IV Intake: hb 100ml 22:30 Drug: Lopressor (metoprolol TARTRATE) 50 mg Route: PO; hb 23:54 Follow up: Response: No adverse reaction hb 22:30 Drug: Digoxin 0.5 mg Route: IVP; Site: right antecubital; hb 23:54 Follow up: Response: No adverse reaction hb 23:11 Drug: Lovenox (enoxaparin) 1 mg/kg Route: Sub-Q; Site: abdomen; hb 23:54 Follow up: Response: No adverse reaction hb Disposition Summary: 11/17/21 22:21 Hospitalization Ordered Hospitalization Status: Inpatient Admission kb Provider: Kameron Phillips Condition: Fair kb Problem: new kb Symptoms: are unchanged kb Bed/Room Type: Standard kb Location: Telemetry/MedSurg (Inpatient)(11/18/21 15:03) em1 Room Assignment: 205(11/18/21 15:03) em1 Diagnosis - Pneumonia, unspecified organism kb - Unspecified atrial fibrillation kb Forms: - Medication Reconciliation Form kb - SBAR form kb Addendum: 11/21/2021 06:59 Co-signature as Attending Physician, Jonathan Mcintyre MD I agree with the assessment and r n plan of care. Attestation: The patient's history, exam findings, diagnostics, and a summary of any interventions or procedures was reviewed in detail with Christine JENSEN. Signatures: Dispatcher [employer] EDMS Christine Meng, CAMILA NIETO-Adamb Jonathan Mcintyre MD MD rn [place], [place] [address] Abdulaziz El FNP-C FNP-[facility] NorthDoreen Sánchez, Ingrid Oquendo RN, RN RN Mai Matos RN RN vc1 Corrections: (The following items were deleted from the chart) 11/17 22:20 22:18 Daughter states patient has had shortness of breath, wheezing and weakness so kb they went to [facility] today. Patient was diagnosed with new onset A. fib with RVR and right lower lobe pneumonia. Daughter states they were told that they did not have a commercial credit portfolio manager so they could not treat the patient and they needed to go to another hospital.. kb 11/18 00:32 11/17 22:21 Telemetry/MedSurg (Inpatient) kb cg 11/18 00:32 11/17 22:21 kb 11/18 15: 00:32 [facility] ER HOLD cg em1 15: 00:32 ERHOLD- cg em1
[2021-11-17] MEDS ORDERED: DIGOXIN 0.25 MG/ML AMP ONE (22:34)
[2021-11-17] MEDS ORDERED: METOPROLOL TAR 50 MG TAB ONE (22:34)
--- NOTE | 2021-11-17 22:34 | RAD REPORT ---
EXAM DESCRIPTION: RAD - Chest Single View - 11/17/2021 10:12 pm CLINICAL HISTORY: CHEST PAIN COMPARISON: Portable 07/31/2021 TECHNIQUE: AP portable chest image was obtained 11/17/2021 10:12 pm . FINDINGS: Extensive interstitial fibrotic changes present accentuated by shallow inspiration. Patter n does appear prominent even for exam limitations and interstitial edema or infiltrate suspected. Car diomegaly is present. Upper lobe vasculature within normal limits. No measurable pleural effusion and no pneumothorax. No acute bony abnormality seen. No acute aortic findings suspected. IMPRESSION: Suspect interstitial edema or infiltrate superimposed on chronic interstitial lung disea se. Cardiomegaly.
[2021-11-17] MEDS ORDERED: ENOXAPARIN 60 MG/0.6 ML SQ ONE (23:09)
[2021-11-17 23:16] LABS: Urine Blood Trace-intact (Negative); Urine Glucose Negative (Negative); Urine Protein Negative (Negative); Urine Specific Gravity 1.015 (1.005-1.030)
[2021-11-18 00:44] LABS: Transitional Epithelial <5 /HPF (None Seen); Urine Bacteria 20-50 /HPF (<20); Urine RBC <5 /HPF (None Seen); Urine WBC Clump Few /HPF (None Seen)
[2021-11-18] MEDS ORDERED: ONDANSETRON 4 MG/2 ML VIAL IV PRN (01:09)
[2021-11-18] MEDS ORDERED: FUROSEMIDE 40 MG/4 ML VIAL ONE (01:27)
[2021-11-18] MEDS ORDERED: ENOXAPARIN 60 MG/0.6 ML SQ ONE ×2 (01:28→10:13)
--- NOTE | 2021-11-18 01:28 | P.HP ---
Certification for Inpatient Patient admitted to: Inpatient With expected LOS: >2 Midnights Patient will require the following post-hospital care: None Practitioner: I am a practitioner with admitting privileges, knowledge of patient current condition, hospital course, and medical plan of care. Services: Services provided to patient in accordance with Admission requirements found in Title 42 Section 412.3 of the Code of Federal Regulations <Abdulaziz El - Last Filed: 11/18/21 01:21> Patient History Date of Service: 11/18/21 Reason for admission: Septic shock, A. fib, CHF History of Present Illness: 80-year-old female with history of hypertension, hypothyroidism originally presented to outside hospital for shortness of breath, weakness and chills she was found to be in A. fib RVR and diagnosed with pneumonia. She was reportedly told that I did not have a dance entertainer at that facility and she elected to leave A and come here. Upon arrival to the emergency department patient was tachycardic with a heart rate of around 142 with A. fib RVR, tachypneic with a respiratory rate of 29 her labs revealed lactic acid of 4.1, troponin high- sensitivity of 71.0, BNP of 4638, glucose 229 urine microscopic with 20-50 bacteria, 11-20 white blood cells her D-dimer also came back elevated at [address] PE: Protocol performed which demonstrated no pulmonary emboli, cardiomegaly with septal thickening and bilateral pleural effusions likely from CHF/fluid volume overload, mild consolidation at the right lung base which could be from atelectasis changes from no pneumonia are not excluded as well as a couple of small nodular lesions in the left lung recommending 12-month follow- up. Patient criteria for septic shock given her tachypnea, tachycardia, lactic acidosis and source of infection with suspected pneumonia she was given 30 cc/kg fluid bolus in the emergency department repeat lactate showed significant improvement down to 1.8 she is remained normotensive. ED provider discussed case with cardiology while she is in the emergency department regarding her A. fib RVR and recommended that she be given a dose of digoxin IV as well as started on p.o. metoprolol 50 mg p.o. twice daily, she was given the digoxin and metoprolol in the ED rate has significant improved at this time currently A. fib with rate of 70. 20 to admit for further evaluation and management of septic shock, new onset A. fib/new onset CHF. - Past Medical/Surgical History Diabetic: No -: Hypertension -: Hypothyroid -: Arthritis -: None Psychosocial/ Personal History: Patient lives at home with her family - Family History Mother -: Cancer Notes: pancreatic Cancer - Social History Smoking Status: Never smoker Alcohol use: No CD- Drugs: No Caffeine use: Yes Place of Residence: Home <Abdulaziz El - Last Filed: 11/18/21 01:21> Date of Service: 11/18/21 <Kameron Phillips - Last Filed: 11/18/21 17:39> Allergies codeine Adverse Reaction (Verified 08/01/21 02:23) reaction unknown Home Medications: Aspirin [Aspirin EC 81 MG] 81 mg PO DAILY 30 Days #30 tablet. 08/01/21 Atorvastatin Calcium [Lipitor] 40 mg PO BEDTIME 30 Days #30 tab 08/01/21 Folic Acid 1 mg PO DAILY 30 Days #30 tablet 08/01/21 Review of Systems 10-point ROS is otherwise unremarkable General: Chills, Malaise Respiratory: Shortness of Breath, SOB with Excertion Cardiovascular: Palpitations <Abdulaziz El - Last Filed: 11/18/21 01:21> Physical Examination - Physical Exam General: Alert, In no apparent distress, Oriented x3 HEENT: Atraumatic, PERRLA, Mucous membr. moist/pink, EOMI, Sclerae nonicteric Neck: Supple, 2+ carotid pulse no bruit, No LAD, JVD distended Respiratory: Diminished, Crackles/rales Cardiovascular: Normal S1 S2, Edema (2+ pitting edema bilateral lower extremities), Irregular heart rate/rhythm (A. fib currently rate controlled) Capillary refill: <2 Seconds Gastrointestinal: Normal bowel sounds, No tenderness Musculoskeletal: No tenderness Integumentary: No rashes Neurological: Normal speech, Normal strength at 5/5 x4 extr, Normal tone, Normal affect - Studies Laboratory Data (last 24 hrs) 11/17/21 21:20: Sodium 135 L, Potassium 3.7, BUN 8, Creatinine 0.89, Glucose 229 H, Magnesium 1.9, Total Bilirubin 0.3, AST 12 L, ALT 22, Alkaline Phosphatase 91 11/17/21 21:20: PT 11.6, INR 1.05, APTT 28.1 11/17/21 21:20: WBC 9.1, Hgb 14.6, Hct 43.1, Plt Count 281 <Abdulaziz El - Last Filed: 11/18/21 01:21> - Studies Laboratory Data (last 24 hrs) 11/17/21 21:20: Sodium 135 L, Potassium 3.7, BUN 8, Creatinine 0.89, Glucose 229 H, Magnesium 1.9, Total Bilirubin 0.3, AST 12 L, ALT 22, Alkaline Phosphatase 91 11/17/21 21:20: PT 11.6, INR 1.05, APTT 28.1 11/17/21 21:20: WBC 9.1, Hgb 14.6, Hct 43.1, Plt Count 281 <Kameron Phillips - Last Filed: 11/18/21 17:39> Assessment and Plan - Plan Assessment: Septic shock secondary to right lower lobe pneumonia New onset A. fib with rapid ventricular response Acute CHFunknown EF Hyperglycemia Hypertension Hypothyroidism Incidental CT finding small nodular lesions in left lung Plan: Septic shock secondary to right lower lobe pneumonia: Patient meets criteria for septic shock given lactic acidosis 4.1 which is improved to 1.8 after 30 cc/kg IV fluid bolus with addition of tachycardia, tachypnea and source of infection of right lower lobe pneumonia. Patient on antibiotics Rocephin/Zithromax, blood cultures were obtained. Suspect tachycardia and possible lactic acidosis may be more related to acute CHF with A. fib RVR. Continue antibiotics, incentive spirometry. New onset A. fib with rapid ventricular response: Monitor on telemetry [id number]- VASc score is 7 will require anticoagulation started on Lovenox currently. Case was discussed with cardiology while she was in the emergency department she was started on metoprolol 50 mg p.o. twice daily she did get a dose last night she is currently rate controlled. Echocardiogram ordered as well as thyroid studies. Acute CHFunknown EF: Patient report swelling in her lower extremities for at least a few months, she did receive 30 cc/kg IV fluid bolus in the emergency department her CT does show cardiomegaly with septal thickening and bilateral pleural effusions she does have 2+ pitting edema bilateral lower extremities her lactic acid improved significantly from 4.1 down to 1.8 her heart rate stabilized is currently in the 70s patient will need to be diuresed given dose of Lasix this evening, echocardiogram has been ordered. Continue patient's lisinopril and add metoprolol, Lasix. Appreciate further input from cardiology. Hyperglycemia: No known history of diabetes, will obtain A1c at sliding scale for persistent hyperglycemia. Hypertension: Continue lisinopril, add metoprolol adjust as necessary. Hypothyroidism: Continue medications once verified. Obtain thyroid panel for this morning. Incidental CT finding "couple" small nodular lesions in left lung: Discussed with patient and daughter at bedside recommend 12-month follow-up CT. They verbalized understanding. DVT PPX: Full dose Lovenox Code status: Full Discharge Plan: Home Plan to discharge in: 72 Hours - Advance Directives Does patient have a Living Will: Yes Does patient have a Durable POA for Healthcare: No - Code Status/Comfort Care Code Status Assessed: Yes (Full code) Critical Care: No Time Spent Managing Pts Care (In Minutes): 70 <Abdulaziz El - Last Filed: 11/18/21 01:21> Physician Review: Patient Assessed, Agree with Above Assessment and Plan <Kameron Phillips - Last Filed: 11/18/21 17:39>
[2021-11-18] MEDS: FUROSEMIDE 40 MG/4 ML VIAL IV SCH ×2 (01:29→17:02)
[2021-11-18 03:34] LABS: Hematocrit 41.2 % (36.0-45.0); MCV 92.7 fL (80-100); MPV 8.8 fL (7.6-11.3); RBC Red Blood Cell Count 4.44 M/uL (3.86-4.86)
[2021-11-18 03:49] LABS: Albumin 3.7 g/dL (3.4-5.0); Bilirubin Total 0.4 mg/dL (0.2-1.0); Potassium 3.9 mmol/L (3.5-5.1)
[2021-11-18 03:52] LABS: Thyroid Stimulating Hormone 7.22 uIU/mL (0.360-3.740); Troponin High Sensitivity 68.5 pg/mL (<58.9)
[2021-11-18 04:08] VITALS: BMI 24.1
[2021-11-18] MEDS: METOPROLOL TAR 50 MG TAB PO SCH ×2 (09:00→21:23)
[2021-11-18] MEDS: AZITHROMYCIN IV 500 MG in NA CHLORIDE 0.9% 250 ML IVPB SCH (09:00)
[2021-11-18] MEDS: ENOXAPARIN 60 MG/0.6 ML SQ SCH ×2 (09:00→21:22)
[2021-11-18] MEDS: lisinopriL 5 MG TAB PO SCH (09:00)
[2021-11-18] MEDS: CEFTRIAXONE 1,000 MG in NA CHLORIDE 0.9% 50 ML IVPB SCH (09:00)
[2021-11-18] MEDS ORDERED: lisinopriL 5 MG TAB ONE (10:11)
[2021-11-18] MEDS ORDERED: METOPROLOL TAR 50 MG TAB ONE (10:11)
[2021-11-18] MEDS ORDERED: CEFTRIAXONE 1000 MG/VIAL ONE (10:11)
[2021-11-18] MEDS ORDERED: AZITHROMYCIN 500 MG INJ IVPB ONE (10:12)
[2021-11-18] MEDS ORDERED: NA CHLORIDE 0.9% 250 ML ONE (10:13)
[2021-11-18] MEDS ORDERED: NA CHLORIDE 0.9% 50 ML ONE (10:14)
--- NOTE | 2021-11-18 11:04 | RAD REPORT ---
EXAM DESCRIPTION: Chest For Pe Angio CLINICAL HISTORY: 80 years Female shortness of breath, elevated D-Dimer COMPARISON: None. TECHNIQUE: Contiguous axial images obtained through the chest during the infusion of IV contrast. Re formatted images obtained. MIP reformatted images obtained. This exam was performed according to our department optimization program which includes automated exp osure control, adjustment of the mA and/or kv according to patient size and/or use of iterative recon struction technique. FINDINGS: The visualized upper abdominal organs appear unremarkable. The heart is enlarged. The mediastinum appears unremarkable. Atherosclerotic calcifications in the thoracic aorta. No pulmonary emboli are identified. There are small bilateral pleural effusions with atelectatic changes. Mild consolidation at the right lung base likely from atelectasis but the possibility of pneumonia is not excluded. There is mild se ptal thickening which could be from edema. No pneumothorax. There is a large calcified granuloma in the right lower lung. There are a couple of nodular lesions in the left lung not characterize vernon uring less than 0.4 cm. No acute osseous abnormality is identified. IMPRESSION: No pulmonary emboli are identified. The heart is enlarged with septal thickening and bilateral pleural effusions. These findings could be from CHF/fluid overload. Mild consolidation at the right lung base which could be from atelectasis. Changes from pneumonia are not excluded. There are a couple of small nodular lesions in the left lung. 12 month follow-up could be obtained if there are risk factors for malignancy. Electronically signed by: Kevin Suero MD 11/17/2021 11:23 PM CDT Due to temporary technical issues with the PACS/Fluency reporting system, reports are being signed by the in house radiologists without review as a courtesy to insure prompt reporting. The interpreting radiologist is fully responsible for the content of the report.
--- NOTE | 2021-11-18 12:54 | CON ---
Date of Consultation: 11/18/2021 History Of Present Illness: Admitted on 11/18/2021 because of atrial fibrillation, congestive heart failure and sepsis. The patient is 80. Came in with pneumonia and sepsis, possible congestive heart failure, was found to be in atrial fibrillation at a rate of 90. She was here in July. She was in sinus rhythm then. She had a normal ejection fraction, moderate aortic regurgitation at that time. She also has a history of hypertension, dyslipidemia, and hypothyroidism. She does not have any sym ptoms of palpitation. Denied any chest pain. Denied any nausea, vomiting, diaphoresis, PND, orthopn ea. Has had some mild pedal edema and shortness of breath, had chills but no fever. Past Medical History: As stated above. Allergies: SHE IS ALLERGIC TO CODEINE. Review of Systems: Negative. Social History: Negative. Family History: Negative. Medications: At home include aspirin, Lipitor, and lisinopril. Physical Examination: Vital Signs: Blood pressure 180/101. Heart rate, atrial fibrillation, 90. HEENT: Negative. Neck: Supple with no bruit. Chest: Reveals some rales, both bases. Cardiac exam: Revealed atrial fibrillation with aortic regurgitation, murmur. No gallops or rubs. Abdomen: Obese, but benign. Extremities: Revealed trace edema. Diagnostic Data: Showed a D-dimer at 100, troponin is 68. BNP is 4638. Her TSH was 7.2. EKG showe d atrial fibrillation. Impression And Plan: 1.Atrial fibrillation, incidental finding. No symptoms. Echocardiogram is pending. The patient ervin s had transient ischemic attacks in the past and she is very high risk for stroke. I think she needs to be on anticoagulation with either Xarelto or Eliquis. The patient needs to be on beta-blockers. We will control her heart rate better and control her blood pressure. She may need her thyroid dose increased slightly. I think her D-dimer elevation, troponin elevation, and BNP elevation are second sami to demand ischemia from her infection and sepsis. She is not clinically in congestive heart fail ure. She does have some aortic regurgitation and dyslipidemia for which she takes Lipitor. The patient I think eventually should have an outpatient Lexiscan. For now, control the blood pressu re. Add beta-blockers. Anticoagulate her with . Continue treatment for her infection. I will discuss the case further with Dr. Phillips. JERMAINE Voice ID: [id number] Report ID: [id number]
[2021-11-18] MEDS ORDERED: PNEUMOCOCCAL VACCINE 0.5 ML IMVAC ONE (15:00)
--- NOTE | 2021-11-18 15:01 | ECHO ---
HEIGHT: 5 ft 1 in WEIGHT: 128 lb 0.006 oz DATE OF STUDY: 11/18/[address]: Abdulaziz El NP 2-DIMENSIONAL: YES M.MODE: YES DOPPLER: YES COLOR FLOW: YES TDS: NO PORTABLE: YES DEFINITY: NO BUBBLE STUDY: NO DIAGNOSIS: NEW ONSET ATRIAL FIBRILLATION, CONGESTIVE HEART FAILURE CARDIAC HISTORY: CATHERIZATION: NO SURGERY: NO PROSTHETIC VALVE: NO PACEMAKER: NO MEASUREMENTS (cm) DIASTOLIC (NORMALS) SYSTOLIC (NORMALS) IVSd 1.0 (0.6-1.2) LA Diam 3.6 (1.9-4.0) LVEF 55% LVIDd 4.3 (3.5-5.7) LVIDs 2.8 (2.0-3.5) %FS 36% LVPWd 1.1 (0.6-1.2) Ao Diam 2.6 (2.0-3.7) 2 DIMENSIONAL ASSESSMENT: RIGHT ATRIUM: NORMAL LEFT ATRIUM: NORMAL RIGHT VENTRICLE: NORMAL LEFT VENTRICLE: NORMAL TRICUSPID VALVE: MITRAL VALVE: PULMONIC VALVE: AORTIC VALVE: PERICARDIAL EFFUSION: NONE AORTIC ROOT: NORMAL LEFT VENTRICULAR WALL MOTION: NORMAL DOPPLER/COLOR FLOW: SEE BELOW COMMENTS: NORMAL LEFT VENTRICULAR EJECTION FRACTION 55-60%. ATRIAL FIBRILLATION. MILD AORTIC AND PULMONARY REGURGITATION. MODERATE TRICUSPID AND MITRAL REGURGITATION. MODERATE PULMONARY HYPERTENSION WITH RIGHT VENTRICULAR SYSTOLIC PRESSURE OF 50-55 mmHg. TECHNOLOGIST: Beckie HENDRICKSON
--- NOTE | 2021-11-18 15:08 | EKG ---
Test Date: 2021-11-17 Test Time: 21:15:40 Cycle Manager: MEASUREMENT RESULTS: Intervals: Rate: 129 CA: QRSD: 70 QT: 300 QTc: 439 [place]: P: CA: QRS: 54 T: 104 INTERPRETIVE STATEMENTS: Atrial fibrillation with rapid ventricular response with premature ventricular or aberrantly conducted complexes Nonspecific ST and T wave abnormality Abnormal ECG Compared to ECG 07/31/2021 19:37:42 Ventricular premature complex(es) now present ST (T wave) deviation now present Sinus rhythm no longer present Atrial premature complex(es) no longer present Myocardial infarct finding no longer present Electronically Signed On 11-18-21 15:07:45 CDT by Fercho Rodriguez
[2021-11-18] MEDS: ATORVASTATIN 40 MG TAB PO SCH (21:22)
[2021-11-19 04:39] LABS: Absolute Lymphocytes (CBC) 1.7 K/uL (0.7-4.9); Lymphocytes % 28.4 % (15.3-44.8); MCV 91.1 fL (80-100); MPV 8.5 fL (7.6-11.3); RBC Red Blood Cell Count 4.39 M/uL (3.86-4.86)
[2021-11-19 04:54] LABS: Albumin 3.1 g/dL (3.4-5.0); Bilirubin Total 0.4 mg/dL (0.2-1.0); Potassium 3.2 mmol/L (3.5-5.1)
[2021-11-19] MEDS: AZITHROMYCIN IV 500 MG in NA CHLORIDE 0.9% 250 ML IVPB SCH (08:59)
[2021-11-19] MEDS: CEFTRIAXONE 1,000 MG in NA CHLORIDE 0.9% 50 ML IVPB SCH (08:59)
[2021-11-19] MEDS ORDERED: POTASSIUM CL SA 10 MEQ TAB PO ONE ×2 (09:00→21:00)
[2021-11-19] MEDS: FUROSEMIDE 40 MG/4 ML VIAL IV SCH (09:03)
[2021-11-19] MEDS: METOPROLOL TAR 50 MG TAB PO SCH ×2 (09:04→20:26)
[2021-11-19] MEDS: lisinopriL 5 MG TAB PO SCH (09:04)
[2021-11-19] MEDS: ENOXAPARIN 60 MG/0.6 ML SQ SCH ×2 (09:05→20:24)
--- NOTE | 2021-11-19 09:30 | PN ---
Date of Progress Note: 11/19/2021 Ms. Sierra had come in with hypokalemia, atrial fibrillation at a rate of 70, elevated BNP. Troponi n is down to 261. Echocardiogram yesterday showed moderate pulmonary hypertension of 50 to 55 mmHg. Atrial fibrillation, ejection fraction 60%. Ms. Sierra presently is feeling better. She is on Lip itor, Lasix, metoprolol, antibiotics, Lovenox, and lisinopril. I think her medical regimen is approp riate; however, when she goes home, considering that she has a very high CHADS2 score, abnormal echoc ardiogram, I think she needs to be anticoagulated with either Xarelto or Eliquis. I will leave that to admitting physician to decide. We will see her as an outpatient. She needs to have an outpatient Lexiscan down the road. No change in therapy at this point. Her potassium may need to be supplemen darryl again. AYAN/BHUPENDRA Voice ID: [id number] Report ID: [id number]
--- NOTE | 2021-11-19 13:09 | P.PN ---
Subjective Date of Service: 11/19/21 Chief Complaint: Septic shock, A. fib, CHF Subjective: Improving No acute events overnight. She reports that her shortness of breath has improved. However, she has been experiencing generalized weakness. Review of Systems 10-point ROS is otherwise unremarkable General: Weakness Physical Examination - Vital Signs Temperature: 97.1 F Blood Pressure: 140/70 Pulse: 58 Respirations: 16 Pulse Ox (%): 95 - Physical Exam General: Alert, In no apparent distress, Oriented x3 HEENT: Atraumatic, Mucous membr. moist/pink, EOMI, Sclerae nonicteric Neck: Supple, JVD not distended Respiratory: Crackles/rales (faint bibasilar) Cardiovascular: No edema, No gallops, No rubs, Other (irregularly, irregular rate and rhythm), Systolic murmur Gastrointestinal: Normal bowel sounds, Soft and benign, Non-distended, No tenderness, No rebound, No guarding Musculoskeletal: No clubbing Integumentary: No rashes Neurological: Normal gait, Normal affect - Studies Microbiology Data (last 24 hrs): 11/17/21 23:50 Clean Catch Urine [place] Count - Final No growth. 11/17/21 23:50 Clean Catch Urine - Final No growth. Assessment And Plan - Plan # Concern for Septic Shock secondary to Possible Right Lower Lobe Pneumonia (improved) Upon presentation, she met SIRS criteria based on HR > 90 bpm and RR > 20 breaths/min. Based on her radiographic imaging, there was concern for right lower lobe pneumonia. Severe sepsis was suspected due to concern for tissue hypoperfusion/organ dysfunction based on lactic acid > 2 mmol/L. Septic shock was suspected due to initial lactate > 4 mmol/L. - Sepsis order set was initiated - Chest x-ray = "suspect interstitial edema or infiltrate superimposed on chronic interstitial lung disease. Cardiomegaly." - CT chest angiogram = "mild consolidation at the right lung base which could be from atelectasis. Changes from pneumonia are not excluded." - Lactate trend: 4.1 -> 1.8 - Blood cultures drawn before antibiotics were given - Broad spectrum antibiotics started: Ceftriaxone + Azithromycin - In regards to fluids: - 30 mL/kg of IV fluids was given based on patient's actual body weight # New-Onset Atrial Fibrillation with Rapid Ventricular Response, resolved Her [id number] = 6 (CHF=1, HTN=1, Age>75=2, TIA=1, Sex=1), which warrants anticoagulation. - Cardiology consulted - recommendations appreciated - Transthoracic echocardiogram = "Normal left ventricular ejection fraction 55- 60%. atrial fibrillation. mild aortic and pulmonary regurgitation. moderate tricuspid and mitral regurgitation. moderate pulmonary hypertension with right ventricular systolic pressure of 50-55 mmHg." - For rate control - started metoprolol - For anticoagulation:- Started enoxaparin - Plan to switch to apixaban at discharge # Acute on Chronic Decompensated Diastolic Congestive Heart Failure with Preserved Ejection Fraction # Moderate Pulmonary Hypertension (new from July 2021) # Moderate Mitral Regurgitation # Moderate Tricuspid Regurgitation # Mild Aortic Regurgitation # Mild Pulmonary Regurgitation # Hypertension Symptoms were likely exacerbated by 30 mL/kg of IV fluids per sepsis bundle. - Consult Cardiology - recommendations appreciated - Transthoracic echocardiogram = "Normal left ventricular ejection fraction 55- 60%. atrial fibrillation. mild aortic and pulmonary regurgitation. moderate tricuspid and mitral regurgitation. moderate pulmonary hypertension with right ventricular systolic pressure of 50-55 mmHg." - CT chest angiogram revealed, "no pulmonary emboli are identified. The heart is enlarged with septal thickening and bilateral pleural effusions. These findings could be from CHF/fluid overload." - Diuresis with IV furosemide for today - Continue metoprolol, lisinopril - Daily weights - Strict I/O - Cardiac diet, 1.5 L fluid restriction, 2 g Na restriction # Deconditioning - Consulted PT - recommended inpatient rehab - Appreciate CM assistance in placement # Dyslipidemia - Continue home atorvastatin # Hypothyroidism - Continue home levothyroxine # Multiple Small Left Lung Nodules Noted on CT chest. - Advised her and her daughter that she follow-up with her PCP for surveillance imaging. They verbalized understanding and agreed to schedule this appointment. Kameron Phillips M.D. Discharge Plan: Transfer (inpatient rehab) Time Spent Managing PTS Care (In Minutes): 40
[2021-11-19] MEDS: ATORVASTATIN 40 MG TAB PO SCH (20:25)
[2021-11-19] MEDS ORDERED: ATORVASTATIN 40 MG TAB PO SCH (21:00)
[2021-11-20 06:09] LABS: Absolute Lymphocytes (CBC) 1.5 K/uL (0.7-4.9); Hematocrit 41.2 % (36.0-45.0); Lymphocytes % 22.9 % (15.3-44.8); MCV 91.2 fL (80-100); MPV 8.2 fL (7.6-11.3); RBC Red Blood Cell Count 4.52 M/uL (3.86-4.86)
[2021-11-20 06:23] LABS: Albumin 3.3 g/dL (3.4-5.0); Bilirubin Total 0.5 mg/dL (0.2-1.0); Potassium 4.1 mmol/L (3.5-5.1); Protein, Total 6.1 g/dL (6.4-8.2)
[2021-11-20] MEDS: METOPROLOL TAR 50 MG TAB PO SCH ×2 (09:39→21:17)
[2021-11-20] MEDS: lisinopriL 5 MG TAB PO SCH (09:39)
[2021-11-20] MEDS: AZITHROMYCIN IV 500 MG in NA CHLORIDE 0.9% 250 ML IVPB SCH (09:40)
[2021-11-20] MEDS: LEVOTHYROXINE SOD 0.05 MG TABLET PO SCH (09:40)
[2021-11-20] MEDS: ENOXAPARIN 60 MG/0.6 ML SQ SCH ×2 (09:40→21:12)
[2021-11-20] MEDS: CEFTRIAXONE 1,000 MG in NA CHLORIDE 0.9% 50 ML IVPB SCH (09:40)
[2021-11-20] MEDS: FOLIC ACID 1 MG TABLET PO SCH (09:40)
[2021-11-20] MEDS: FUROSEMIDE 40 MG/4 ML VIAL IV SCH (09:41)
--- NOTE | 2021-11-20 10:46 | P.PN ---
Subjective Date of Service: 11/20/21 Chief Complaint: Septic shock, A. fib, CHF Subjective: No new changes No acute events overnight. She and her daughter were very upset this morning that she had been woken up during the night for vital signs. I explained that monitoring her vital signs is part of inpatient hospital stay. She has requested that we do not check her vitals between 10 PM to 6 AM. I informed her that this can be dangerous as we will not be aware if her vital signs were to become unstable. She states that they accept this risk and her daughter will notify nursing staff if needed. Although not comfortable with this plan, I will respect her wishes and I have asked the nursing staff not to take her vitals during this time. I have asked the nurses to check in on her periodically to ensure that she is mentating appropriately and has everything she needs. She will remain on tel emetry and we will monitor her hemodynamics the best we can using this. Currently, she is hemodynamically stable and awaiting placement. Review of Systems 10-point ROS is otherwise unremarkable General: Weakness Physical Examination - Vital Signs Temperature: 98.3 F Blood Pressure: 166/92 Pulse: 99 Respirations: 16 Pulse Ox (%): 97 - Studies Microbiology Data (last 24 hrs): 11/17/21 23:50 Clean Catch Urine [place] Count - Final No growth. 11/17/21 23:50 Clean Catch Urine - Final No growth. Assessment And Plan - Plan # Concern for Septic Shock secondary to Possible Right Lower Lobe Pneumonia (improved) Upon presentation, she met SIRS criteria based on HR > 90 bpm and RR > 20 breaths/min. Based on her radiographic imaging, there was concern for right lower lobe pneumonia. Severe sepsis was suspected due to concern for tissue hypoperfusion/organ dysfunction based on lactic acid > 2 mmol/L. Septic shock was suspected due to initial lactate > 4 mmol/L. - Sepsis order set was initiated - Chest x-ray = "suspect interstitial edema or infiltrate superimposed on chronic interstitial lung disease. Cardiomegaly." - CT chest angiogram = "mild consolidation at the right lung base which could be from atelectasis. Changes from pneumonia are not excluded." - Lactate trend: 4.1 -> 1.8 - Blood cultures drawn before antibiotics were given - Broad spectrum antibiotics started: Ceftriaxone + Azithromycin - In regards to fluids: - 30 mL/kg of IV fluids was given based on patient's actual body weight # New-Onset Atrial Fibrillation with Rapid Ventricular Response, resolved Her [id number] = 6 (CHF=1, HTN=1, Age>75=2, TIA=1, Sex=1), which warrants anticoagulation. - Cardiology consulted - recommendations appreciated - Transthoracic echocardiogram = "Normal left ventricular ejection fraction 55- 60%. atrial fibrillation. mild aortic and pulmonary regurgitation. moderate tricuspid and mitral regurgitation. moderate pulmonary hypertension with right ventricular systolic pressure of 50-55 mmHg." - For rate control - started metoprolol - For anticoagulation:- Started enoxaparin - Plan to switch to apixaban at discharge # Acute on Chronic Decompensated Diastolic Congestive Heart Failure with Preserved Ejection Fraction # Moderate Pulmonary Hypertension (new from July 2021) # Moderate Mitral Regurgitation # Moderate Tricuspid Regurgitation # Mild Aortic Regurgitation # Mild Pulmonary Regurgitation # Hypertension Symptoms were likely exacerbated by 30 mL/kg of IV fluids per sepsis bundle. - Consult Cardiology - recommendations appreciated - Transthoracic echocardiogram = "Normal left ventricular ejection fraction 55- 60%. atrial fibrillation. mild aortic and pulmonary regurgitation. moderate tricuspid and mitral regurgitation. moderate pulmonary hypertension with right ventricular systolic pressure of 50-55 mmHg." - CT chest angiogram revealed, "no pulmonary emboli are identified. The heart is enlarged with septal thickening and bilateral pleural effusions. These findings could be from CHF/fluid overload." - Diuresis with IV furosemide for today - Continue metoprolol, lisinopril - Daily weights - Strict I/O - Cardiac diet, 1.5 L fluid restriction, 2 g Na restriction # Deconditioning - Consulted PT - recommended inpatient rehab - Appreciate CM assistance in placement # Dyslipidemia - Continue home atorvastatin # Hypothyroidism - Continue home levothyroxine # Multiple Small Left Lung Nodules Noted on CT chest. - Advised her and her daughter that she follow-up with her PCP for surveillance imaging. They verbalized understanding and agreed to schedule this appointment. Disposition: Can be discharged once cleared by Cardiology and Pulmonology and accepted to inpatient rehab. Kaemron Phillips M.D. Discharge Plan: Transfer (inpatient rehab)
--- NOTE | 2021-11-20 11:06 | PN ---
Date of Progress Note: 11/20/2021 Ms. Sierra was seen for atrial fibrillation that was incidental, elevated troponin. Echocardiogram showed moderate pulmonary hypertension, ejection fraction 60%. She remains in atrial fibrillation at a rate of 70 without any cardiac symptoms. If she goes home, she needs to be anticoagulated with Xa relto and Eliquis. Presently, her vital signs are stable. She is afebrile. She is in AFib, rate of 87. Good inputs and output. O2 saturation is 97% on room air. Last troponin had decreased to 61. She is presently on Lipitor, Lovenox, Lasix, metoprolol, remained on antibiotics as well as lisinopr il. I would continue her present regimen. I will sign off her case. We will see her as an outpatie nt. I think she deserves to have a Lexiscan as an outpatient to rule out coronary artery disease. AYAN/BHUPENDRA Voice ID: [id number] Report ID: [id number]
[2021-11-20] MEDS: ATORVASTATIN 40 MG TAB PO SCH (21:12)
[2021-11-20] MEDS: ACETAMINOPHEN 500 MG TAB PO PRN (21:12)
[2021-11-21 07:32] LABS: Potassium 3.6 mmol/L (3.5-5.1)
[2021-11-21] MEDS: FUROSEMIDE 40 MG/4 ML VIAL IV SCH (08:44)
[2021-11-21] MEDS: lisinopriL 5 MG TAB PO SCH (08:45)
[2021-11-21] MEDS: FOLIC ACID 1 MG TABLET PO SCH (08:45)
[2021-11-21] MEDS: METOPROLOL TAR 50 MG TAB PO SCH ×2 (08:45→20:27)
[2021-11-21] MEDS: LEVOTHYROXINE SOD 0.05 MG TABLET PO SCH (08:45)
[2021-11-21] MEDS: ENOXAPARIN 60 MG/0.6 ML SQ SCH (08:46)
--- NOTE | 2021-11-21 11:27 | P.CNS ---
Date of Consult: 11/21/21 Chief Complaint: sob History of Present Illness: Patient is 80 years of age he call for hypertension hypothyroidism. Admitted to the hospital complaining of worsening dyspnea or lower extremity edema no prior history of primary complaints patient is never smoked CT scan showed bilateral pleural effusion's patient is doing better according to the daughter patient has been very weak requiring a lot of care recent history of transient ischemic attack was scheduled to see a neurologist being complaining of some pleasing been going on for the past few weeks Allergies codeine Adverse Reaction (Verified 08/01/21 02:23) reaction unknown Home Medications: Folic Acid 1 mg PO DAILY 30 Days #30 tablet 08/01/21 Atorvastatin Calcium [Lipitor] 20 mg PO BEDTIME 11/18/21 Calcium Carbonate [Tums Regular*] 500 mg PO DAILY 11/18/21 Ibuprofen [Advil] 400 mg PO BEDTIME 11/18/21 Levothyroxine [Synthroid*] 50 mcg PO DAILY 11/18/21 Lisinopril/Hydrochlorothiazide [Lisinopril-Hctz 20-12.5 mg Tab] 1 tab PO DAILY 11/18/21 - Past Medical/Surgical History Diabetic: No -: Hypertension -: Hypothyroid -: Arthritis -: None Psychosocial/ Personal History: Patient lives at home with her family - Family History Mother Medical History: Cancer Notes: pancreatic Cancer - Social History Alcohol use: No CD- Drugs: No Caffeine use: Yes Place of Residence: Home Review of Systems 10-point ROS is otherwise unremarkable General: Weakness Respiratory: Shortness of Breath Physical Examination Temp Pulse Resp BP Pulse Ox 97.7 F 90 14 160/82 H 95 11/21/21 08:00 11/21/21 08:45 11/21/21 08:00 11/21/21 08:45 11/21/21 08:00 General: Alert, In no apparent distress, Oriented x3 Respiratory: Clear to auscultation bilaterally Cardiovascular: No edema, Regular rate/rhythm - Problems (1) Diastolic CHF, acute on chronic Current Visit: Yes Status: Acute Plan: Patient is 80 years of age metabolic syndrome admitted with worsening dyspnea bilateral pleural effusion's lower extremity edema patient has normal left ventricular function I suspect that she has acute on chronic diastolic failure doing better complaining of wheezing no prior history of smoking I suggest adding some Spironolactone and low-dose Lasix DC antibiotics physical therapyLabs reviewed cultures at all negative labs are normal CT scan a chest x- ray also reviewed.There is no evidence of sepsis DC antibiotics (2) Atrial fibrillation Current Visit: Yes Status: Acute Plan: Patient has a fairly new onset of atrial fibrillation change to RPO eloquence continue with rate control. TSH is elevated T4 is normal Qualifiers: Atrial fibrillation type: unspecified Qualified Code(s): I48.91 - Unspecified atrial fibrillation
[2021-11-21 16:26] VITALS: O2SAT 97
[2021-11-21] MEDS: SPIRONOLACTONE 25 MG TABLET PO SCH (20:28)
[2021-11-21] MEDS: APIXABAN 5 MG TABLET PO SCH (20:28)
[2021-11-21] MEDS: ATORVASTATIN 40 MG TAB PO SCH (20:28)
[2021-11-22 08:12] LABS: Potassium 3.4 mmol/L (3.5-5.1)
[2021-11-22] MEDS: lisinopriL 5 MG TAB PO SCH (08:46)
[2021-11-22] MEDS: APIXABAN 5 MG TABLET PO SCH ×2 (08:47→21:47)
[2021-11-22] MEDS: LEVOTHYROXINE SOD 0.05 MG TABLET PO SCH (08:47)
[2021-11-22] MEDS: FOLIC ACID 1 MG TABLET PO SCH (08:47)
[2021-11-22] MEDS: SPIRONOLACTONE 25 MG TABLET PO SCH ×2 (08:47→21:46)
[2021-11-22] MEDS: METOPROLOL TAR 50 MG TAB PO SCH ×2 (08:47→21:45)
[2021-11-22] MEDS ORDERED: POTASSIUM CL SA 10 MEQ TAB PO ONE (12:30)
--- NOTE | 2021-11-22 13:03 | P.PN ---
Subjective Date of Service: 11/21/21 Subjective: No new changes, No C/O voiced, Improving Review of Systems 10-point ROS is otherwise unremarkable Physical Examination - Vital Signs Temperature: 96.2 F Blood Pressure: 136/94 Pulse: 63 Respirations: 18 Pulse Ox (%): 95 - Physical Exam General: Alert, In no apparent distress HEENT: Atraumatic, PERRLA, EOMI Neck: Supple, JVD not distended Respiratory: Clear to auscultation bilaterally, Normal air movement Cardiovascular: Regular rate/rhythm, Normal S1 S2 Gastrointestinal: Normal bowel sounds, No tenderness Musculoskeletal: No tenderness Integumentary: No rashes Neurological: Normal speech, Normal tone, Abnormal strength Lymphatics: No axilla or inguinal lymphadenopathy - Studies Medications List Reviewed: Yes Assessment & Plan - Problems (Diagnosis) (1) Myopathy Current Visit: Yes Status: Acute (2) Generalized weakness Current Visit: Yes Status: Acute (3) Atrial fibrillation Current Visit: Yes Status: Acute (4) Diastolic CHF, acute on chronic Current Visit: Yes Status: Acute - Plan PLAN: 1. Echocardiogram 2. Calcium channel johana therapy 3. Low-dose beta-johana therapy 4. Cardiology consultation appreciated 5. Gently diuresis 6. Strict I's and O's 7. Repeat CXR 8. Daily weights 9. Physical therapy evaluation 10. Education regarding diet and treatment of congestive heart failure Discharge Plan: Home Plan to discharge in: Greater than 2 days - Advance Directives Does patient have a Living Will: No Does patient have a Durable POA for Healthcare: No - Code Status/Comfort Care Code Status Assessed: Yes Code Status: Full Code Physician Review: Patient Assessed, Agree with Above Assessment and Plan Critical Care: No Time Spent Managing PTS Care (In Minutes): 35
--- NOTE | 2021-11-22 13:05 | P.PN ---
Date of Service: 11/22/21 Subjective Subjective: Patient continues to improve with no new complaints. Review of Systems 10-point ROS is otherwise unremarkable Physical Examination - Vital Signs Reviewed - Physical Exam General: Alert, In no apparent distress Respiratory: Clear to auscultation bilaterally, Normal air movement Cardiovascular: Regular rate/rhythm, Normal S1 S2 Gastrointestinal: Normal bowel sounds, No tenderness Neurological: Normal speech, Normal tone, Abnormal strength Assessment & Plan - Problems (Diagnosis) (1) Myopathy Current Visit: Yes Status: Acute (2) Generalized weakness Current Visit: Yes Status: Acute (3) Atrial fibrillation Current Visit: Yes Status: Acute (4) Diastolic CHF, acute on chronic Current Visit: Yes Status: Acute - Plan Continue with plan of care as mentioned below: 1. Echocardiogram 2. Calcium channel johana therapy 3. Low-dose beta-johana therapy 4. Cardiology consultation appreciated 5. Gently diuresis 6. Strict I's and O's 7. Repeat CXR 8. Daily weights 9. Physical therapy evaluation 10. Education regarding diet and treatment of congestive heart failure Discharge Plan: Home Plan to discharge in: Greater than 2 days - Advance Directives Does patient have a Living Will: No Does patient have a Durable POA for Healthcare: No - Code Status/Comfort Care Code Status Assessed: Yes Code Status: Full Code Physician Review: Patient Assessed, Agree with Above Assessment and Plan Critical Care: No Time Spent Managing PTS Care (In Minutes): 35
[2021-11-22] MEDS: ATORVASTATIN 40 MG TAB PO SCH (21:46)
[2021-11-22] MEDS: ACETAMINOPHEN 500 MG TAB PO PRN (21:54)
[2021-11-23 06:25] LABS: Absolute Lymphocytes (CBC) 1.5 K/uL (0.7-4.9); Hematocrit 42.1 % (36.0-45.0); MCV 91.4 fL (80-100); MPV 8.6 fL (7.6-11.3); RBC Red Blood Cell Count 4.61 M/uL (3.86-4.86)
[2021-11-23 06:35] LABS: Albumin 3.3 g/dL (3.4-5.0); Bilirubin Total 0.5 mg/dL (0.2-1.0); Magnesium 2.2 mg/dL (1.8-2.4); Phosphorus 3.4 mg/dL (2.5-4.9); Potassium 4.5 mmol/L (3.5-5.1); Protein, Total 6.5 g/dL (6.4-8.2)
[2021-11-23] MEDS: APIXABAN 5 MG TABLET PO SCH (10:27)
[2021-11-23] MEDS: LEVOTHYROXINE SOD 0.05 MG TABLET PO SCH (10:28)
[2021-11-23] MEDS: SPIRONOLACTONE 25 MG TABLET PO SCH (10:28)
[2021-11-23] MEDS: FOLIC ACID 1 MG TABLET PO SCH (10:28)
[2021-11-23] MEDS: lisinopriL 5 MG TAB PO SCH (10:29)
[2021-11-23] MEDS: METOPROLOL TAR 50 MG TAB PO SCH (10:30)
--- NOTE | 2021-11-23 12:35 | P.DS ---
Discharge Date: 11/23/21 Disposition: ROUTINE DISCHARGE Discharge Condition: GOOD Reason for Admission: sob - Problems (1) Myopathy Current Visit: Yes Status: Acute (2) Generalized weakness Current Visit: Yes Status: Acute (3) Atrial fibrillation Current Visit: Yes Status: Acute (4) Diastolic CHF, acute on chronic Current Visit: Yes Status: Acute Brief History of Present Illness: 80-year-old female with history of hypertension, hypothyroidism originally presented to outside hospital for shortness of breath, weakness and chills she was found to be in A. fib RVR and diagnosed with pneumonia. 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 Upon arrival to the emergency department patient was tachycardic with a heart rate of around 142 with A. fib RVR, tachypneic with a respiratory rate of 29 her labs revealed lactic acid of 4.1, troponin high- sensitivity of 71.0, BNP of 4638, glucose 229 urine microscopic with 20-50 bacteria, 11-20 white blood cells her D-dimer also came back elevated at [address] PE: Protocol performed which demonstrated no pulmonary emboli, cardiomegaly with septal thickening and bilateral pleural effusions likely from CHF/fluid volume overload, mild consolidation at the right lung base which could be from atelectasis changes from no pneumonia are not excluded as well as a couple of small nodular lesions in the left lung recommending 12-month follow- up. Patient criteria for septic shock given her tachypnea, tachycardia, lactic acidosis and source of infection with suspected pneumonia she was given 30 cc/kg fluid bolus in the emergency department repeat lactate showed significant improvement down to 1.8 she is remained normotensive. ED provider discussed case with cardiology while she is in the emergency department regarding her A. fib RVR and recommended that she be given a dose of digoxin IV as well as started on p.o. metoprolol 50 mg p.o. twice daily, she was given the digoxin and metoprolol in the ED rate has significant improved at this time currently A. fib with rate of 70. 20 to admit for further evaluation and management of septic shock, new onset A. fib/new onset CHF. Hospital Course: Patient has done well during hospitalization. Echocardiogram revealed tricuspid valve regurgitation as well as pulmonary hypertension. Patient had an elevated right ventricular pressure. Patient most likely has diastolic heart failure. Patient has been given low-dose Aldactone. Blood pressure has been stable. Patient's strength is diminished and hopefully she can increase her strength with increase protein intake and physical therapy as an outpatient. At this time, patient is stable for discharge home with home health and physical therapy. Vital Signs/Physical Exam: Temp Pulse Resp BP Pulse Ox 97.3 F 78 18 142/79 H 96 11/23/21 08:00 11/23/21 10:30 11/23/21 08:00 11/23/21 10:30 11/23/21 08:00 General: Alert, In no apparent distress, Oriented x3 Laboratory Data at Discharge: WBC 6.0 K/uL (4.3-10.9) 11/23/21 05:51 Hgb 14.6 g/dL (12.0-15.0) 11/23/21 05:51 Hct 42.1 % (36.0-45.0) 11/23/21 05:51 Plt Count 237 K/uL (152-406) 11/23/21 05:51 PT 11.6 SECONDS (9.5-12.5) 11/17/21 21:20 INR 1.05 11/17/21 21:20 APTT 28.1 SECONDS (24.3-36.9) 11/17/21 21:20 Sodium 138 mmol/L (136-145) 11/23/21 05:51 Potassium 4.5 mmol/L (3.5-5.1) 11/23/21 05:51 BUN 16 mg/dL (7-18) 11/23/21 05:51 Creatinine 0.63 mg/dL (0.55-1.3) 11/23/21 05:51 Glucose 105 mg/dL (74-106) 11/23/21 05:51 Phosphorus 3.4 mg/dL (2.5-4.9) 11/23/21 05:51 Magnesium 2.2 mg/dL (1.8-2.4) 11/23/21 05:51 Total Bilirubin 0.5 mg/dL (0.2-1.0) 11/23/21 05:51 AST 101 U/L (15-37) H 11/23/21 05:51 ALT 147 U/L (12-78) H D 11/23/21 05:51 Alkaline Phosphatase 85 U/L (45-117) 11/23/21 05:51 Triglycerides 84 mg/dL (<150) 11/18/21 03:01 Cholesterol 136 mg/dL (<200) 11/18/21 03:01 HDL Cholesterol 54 mg/dL (40-60) 11/18/21 03:01 Cholesterol/HDL Ratio 2.52 11/18/21 03:01 Home Medications: Folic Acid 1 mg PO DAILY 30 Days #30 tablet 08/01/21 Calcium Carbonate [Tums Regular*] 500 mg PO DAILY 11/18/21 Levothyroxine [Synthroid*] 50 mcg PO DAILY 11/18/21 Apixaban [Eliquis] 5 mg PO BID #60 11/23/21 Metoprolol Tartrate [Lopressor*] 50 mg PO BID #60 tab 11/23/21 Spironolactone [Aldactone*] 25 mg PO BID #60 tab 11/23/21 New Medications: Spironolactone [Aldactone*] 25 mg PO BID #60 tab Apixaban [Eliquis] 5 mg PO BID #60 Metoprolol Tartrate [Lopressor*] 50 mg PO BID #60 tab Physician Discharge Instructions: -DC IV and DC home -Follow-up with PCP in 1 to 2 weeks -Follow-up with Cardiology in 1 to 2 weeks -Please call Dr. Valdivia at [phone] if any questions regarding hospital stay -Please call nursing station at [phone] if any nursing or medication questions -Return to the emergency room if symptoms worsen Diet: AHA Activity: Fall precautions Followup: Unknown,U [Primary Care Provider] -
[2021-11-23 13:24] VITALS: BP 128/72; TEMP 97.9
== END 2021-11-23 15:04 | disposition home health service (06) | DRG 871 ==
LOC: ER 20:43 → ERHOLD 11-18 00:26 → 2ND 11-18 15:57
PROVIDERS: ADMIT Internal Medicine; ATTEND Internal Medicine
DX: A41.9 Sepsis, unspecified organism (principal); I50.33 Acute on chronic diastolic (congestive) heart failure; J18.9 Pneumonia, unspecified organism; R65.21 Severe sepsis with septic shock; I24.8 Other forms of acute ischemic heart disease; E03.9 Hypothyroidism, unspecified; I27.20 Pulmonary hypertension, unspecified; I48.91 Unspecified atrial fibrillation; R91.8 Other nonspecific abnormal finding of lung field; R73.9 Hyperglycemia, unspecified; I11.0 Hypertensive heart disease with heart failure; I08.3 Combined rheumatic disorders of mitral, aortic and tricuspid valves; I37.1 Nonrheumatic pulmonary valve insufficiency; E78.5 Hyperlipidemia, unspecified; G72.9 Myopathy, unspecified
CPT/HCPCS: 36415; 71045; 71275; 80048; 80053; 80061; 81003; 81015; 83036; 83605; 83735; 83880; 84100; 84132; 84439; 84443; 84484; 85025; 85379; 85610; 85730; 87040; 87086; 87088; 93005; 93306; 94010; 96365; 96372; 96375; 97110; 97112; 97116; 97161; 97530; 99285; J0456; J1160; J1650; J1940; J7030; J7050; Q9967

== ENCOUNTER 2023-11-05 11:54 | Inpatient (IN) | payer OTHER ==
[2023-11-05] MEDS ORDERED: NA CHLORIDE 0.9% 1,000 ML ONE (12:46)
[2023-11-05] MEDS ORDERED: ONDANSETRON 4 MG/2 ML VIAL ONE (12:46)
--- NOTE | 2023-11-05 13:11 | RAD REPORT ---
EXAM DESCRIPTION: CT - [id number] - 11/05/2023 12:42 pm CLINICAL HISTORY: fall COMPARISON: Neck Angio dated 07/31/2021 TECHNIQUE: Axial thin cut noncontrast CT images of the head were obtained. Axial thin cut noncontrast CT images of the cervical spine were obtained. Multiplanar reformatted images were generated and reviewed. All CT scans are performed using dose optimization technique as appropriate and may include automated exposure control or mA/KV adjustment according to patient size. FINDINGS: CT HEAD WITHOUT CONTRAST: No acute hemorrhage, hydrocephalus or extra-axial collection is identified. Mild diffuse parenchymal volume loss. No areas of brain edema or midline shift. Mastoid air cells are well aerated. Right maxillary sinus mucous retention cyst. The calvarium is int act. CT CERVICAL SPINE WITHOUT CONTRAST: No fracture or subluxation.No prevertebral soft tissues swelling is identified. Mild to moderate dege nerative changes. IMPRESSION: No acute traumatic intracranial or cervical spine findings. Incidental findings as above.
[2023-11-05 13:34] LABS: Absolute Basophils 0.1 K/uL (0-0.5); Absolute Eosinophils 0.1 K/uL (0-0.5); Absolute Lymphocytes (CBC) 0.7 K/uL (0.7-4.9); Absolute Monocytes 0.9 K/uL (0.1-1.3); Absolute Neutrophil 5.4 K/uL (1.8-8.0); Basophils % 0.9 % (0-1.3); Eosinophils % 1.3 % (0-4.4); Hematocrit 40.3 % (36.0-45.0); Hemoglobin 13.8 g/dL (12.0-15.0); Lymphocytes % 9.5 % (15.3-44.8); MCH 33.2 pg (27.0-35.0); MCHC 34.2 g/dL (32.0-36.0); MCV 97.1 fL (80-100); MPV 7.5 fL (7.6-11.3); Monocytes % 12.4 % (3.3-12.3); Neutrophils % 75.9 % (41.7-73.7); Nucleated Red Blood Cells % 0.2 % (0-0); Platelets 266 thou/uL (152-406); RBC Red Blood Cell Count 4.15 M/uL (3.86-4.86); Red Cell Distribution Width 12.5 % (12.1-15.2)
--- NOTE | 2023-11-05 13:45 | RAD REPORT ---
[facility] CLINICAL HISTORY: COUGH COMPARISON: Chest Single View dated 11/17/2021; Chest Single View dated 07/31/2021 TECHNIQUE: Portable AP view of the chest. FINDINGS: Patient rotation somewhat limits evaluation. The lungs are clear. Mild hyperinflation. No pneumothorax or effusion. The cardiomediastinal contours are unremarkable. IMPRESSION: No acute cardiopulmonary process.
[2023-11-05 13:52] LABS: Albumin 3.7 g/dL (3.4-5.0); Albumin/Globulin Ratio 1.1 (1.1-1.8); Anion Gap 14.3 mEq/L (5.0-15.0); Bilirubin Total 0.5 mg/dL (0.2-1.0); Globulin 3.3 g/dL (2.3-3.5); Potassium 5.3 mEq/L (3.5-5.1)
--- NOTE | 2023-11-05 14:11 | EDPHYS ---
Physician Documentation [facility] Name: Janene Sierra Age: 82 yrs Sex: Female : 1940 Arrival Date: 11/05/2023 Time: 11:54 Bed 7 Private MD: ED Physician Francisco Benites HPI: 11/04 12:37 This 82 yrs old Female presents to ER via Wheelchair with complaints of Blood ec2 Pressure Problem, Decreased Appetite. 12:37 Patient arrives today for evaluation of generalized weakness. Patient brought in by ec2 daughter, patient with multiple complaints including decreased urine output, decreased p.o. intake, generalized weakness, had a fall 3 days ago, is on blood thinners. Occasional cough.. Historical: - Allergies: 12:16 Codeine; me1 - PMHx: 12:16 Arthritis; Hypertensive disorder; Hypothyroidism; TIA (Tonsillectomy); me1 - PSHx: 12:16 Tonsillectomy; me1 - Immunization history:: Adult Immunizations up to date. - Infectious Disease History:: Denies. - Social history:: Smoking status: Patient denies any tobacco usage or history of. ROS: 12:37 Constitutional: as per hpi ec2 Exam: 12:37 Constitutional: GEN: NAD Head: atraumatic Eyes: EOMI Ears: External ears are ec2 normal. CV: regular rate LUNGS: no respiratory distress ABD: non-distended SKIN: no evidence of rashes MSK: no evidence of trauma NEURO: moves all extremities equally Vital Signs: 12:11 BP 106 / 57; Pulse 60; Resp 17; Temp 97; Pulse Ox 99% on R/A; Weight 58.06 kg; Height 5 me1 ft. 1 in. ; Pain 0/10; 13:21 BP 103 / 46; Pulse 57; Resp 16; Pulse Ox 95% ; bp 14:00 BP 115 / 93; Pulse 63; Resp 16; Pulse Ox 97% on R/A; me1 15:00 BP 107 / 70; Pulse 61; Resp 15; Pulse Ox 100% on R/A; me1 16:00 BP 121 / 65; Pulse 60; Resp 14; Pulse Ox 100% on R/A; me1 12:11 Body Mass Index 24.19 (58.06 kg, 154.94 cm) me1 12:11 Pain Scale: Adult me1 MDM: 12:11 Patient medically screened. ec2 12:37 Data reviewed: vital signs. ED course: Patient arrives today for generalized weakness. ec2 Will obtain lab work, urine studies, CT scan of the head, chest x-ray. Differential includes dehydration, urinary tract infection, anemia, intracranial injury.. 13:36 ED course: CBC reassuring, CT head and C-spine showed no traumatic findings. Chest ec2 x-ray independently reviewed and interpreted by me, shows no acute intrathoracic process.. 14:09 ED course: Metabolic profile shows marked hyponatremia with a sodium of 122, renal ec2 dysfunction with a creatinine of 1.27, GFR 43. Will admit for hyponatremia. Discussed case with hospitalist, pending admission... 14:10 ED course: MDM: Differential diagnosis as documented above in ED course; All lab tests ec2 ordered and reviewed as documented above; External records reviewed: Previous ED visit and associated lab work; History gathered from independent historian: Yes, family; Discuss inpatient hospitalization: Yes; I discussed the case with: Hospitalist . 11/04 12:21 Order name: CBC with Diff; Complete Time: 13:36 ec2 11/04 12:21 Order name: CMP; Complete Time: 14:08 ec2 11/04 12:21 Order name: Lipase; Complete Time: 14:08 ec2 11/04 12:21 Order name: Urinalysis w/ reflexes ec2 11/04 15:57 Order name: T4 Free EDMS 11/04 15:57 Order name: Thyroid Stimulating Hormone EDMS 11/04 15:57 Order name: Basic Metabolic Panel EDMS 11/04 15:57 Order name: Basic Metabolic Panel EDMS 11/04 15:57 Order name: CBC with Automated Diff EDMS 11/04 15:57 Order name: CBC with Automated Diff EDMS 11/04 15:57 Order name: Lipid Profile EDMS 11/04 15:57 Order name: Lipid Profile EDMS 11/04 15:57 Order name: Magnesium EDMS 11/04 15:57 Order name: Magnesium EDMS 11/04 15:57 Order name: Phosphorus EDMS 11/04 15:57 Order name: Phosphorus EDMS 11/04 15:57 Order name: Troponin High Sensitivity EDMS 11/04 15:57 Order name: Troponin High Sensitivity EDMS 11/04 15:57 Order name: Troponin High Sensitivity EDCA 11/04 15:57 Order name: Troponin High Sensitivity EDCA 11/04 15:57 Order name: Troponin High Sensitivity EDCA 11/04 15:57 Order name: Troponin High Sensitivity EDCA 11/04 15:57 Order name: Troponin High Sensitivity EDCA 11/04 15:57 Order name: Troponin High Sensitivity EDCA 11/04 12:22 Order name: CXR XRAY; Complete Time: 14:08 ec2 11/04 12:43 Order name: Head C Spine Mpr Wo Con; Complete Time: 13:36 EDMS 11/04 15:57 Order name: CONS Physician Consult EDMS 11/04 15:58 Order name: CONS [facility] Cons EDMS 11/04 16:01 Order name: Dietitian Consult EDCA 11/04 16:04 Order name: EKG Electrocardiogram EDMS 11/04 12:21 Order name: IV Saline Lock; Complete Time: 13:20 ec2 11/04 12:21 Order name: Labs collected and sent; Complete Time: 13:20 ec2 Administered Medications: 13:20 Drug: NS 0.9% IV 1000 ml IV at 1 bolus Per protocol; 1000 mL bolus Route: IV; Rate: 1 bp bolus; Site: right wrist; 15:12 Follow up: Response: No adverse reaction; IV Status: Completed infusion me1 13:20 Drug: Ondansetron IVP 4 mg IVP once; over 2 minutes Route: IVP; Site: right wrist; bp 15:13 Follow up: Response: No adverse reaction; Nausea is decreased me1 Disposition Summary: 11/05/23 14:10 Hospitalization Ordered Notes: Hospitalization Status: Inpatient Admission ec2 Provider: Joshua Mcintyre ec2 Location: Telemetry/[facility] (Inpatient) ec2 Condition: Stable ec2 Problem: new ec2 Symptoms: are unchanged ec2 Bed/Room Type: Standard ec2 Room Assignment: 408(11/05/23 15:59) bd Diagnosis - Hypo-osmolality and hyponatremia ec2 - Weakness ec2 Forms: - Medication Reconciliation Form ec2 - SBAR form ec2 - Leadership Thank You Letter ec2 Signatures: Dispatcher [employer] Katja Abdullahi Brian, RN RN bp Evelyne Pierre RN RN me1 Francisco Benites MD MD ec2 Corrections: (The following items were deleted from the chart) 12:43 12:22 Head Brain Wo Cont+CT.RAD.BRZ ordered. EDMS EDMS 14:18 13:36 ED course: CBC reassuring, CT head and C-spine showed no traumatic findings. . ec2ec2 15:59 14:10 ec2 bd
--- NOTE | 2023-11-05 14:11 | ER ---
Nurse's Notes [facility] Name: Janene Sierra Age: 82 yrs Sex: Female : 1940 Arrival Date: 11/05/2023 Time: 11:54 Bed 7 Private MD: Diagnosis: Hypo-osmolality and hyponatremia;Weakness Presentation: 11/04 12:11 Chief complaint: Patient's son or daughter states: for about 2 weeks patient has me1 declined. c/o cough, generalized weakness, n/v. Fell out of bed on Sunday and hit her head (on blood thinners). Chronic wound to L heel that she just finished abx for. Took levaquin 500mg po q day x 10 days. Decreased appetite and decreased urine and bowel output. Coronavirus screen: Vaccine status: Patient reports being unvaccinated. Ebola Screen: No symptoms or risks identified at this time. Initial Sepsis Screen: Does the patient meet any 2 criteria? No. Patient's initial sepsis screen is negative. Does the patient have a suspected source of infection? No. Patient's initial sepsis screen is negative. Risk Assessment: Do you want to hurt yourself or someone else? Patient reports no desire to harm self or others. Onset of symptoms is unknown. 12:11 Method Of Arrival: Wheelchair [facility] [place] 12:11 Acuity: YULIA 3 me1 Triage Assessment: 12:16 General: Appears comfortable, well groomed, well developed, well nourished, Behavior is me1 calm, cooperative, appropriate for age, quiet. Pain: Denies pain. EENT: No signs and/or symptoms were reported regarding the EENT system. Neuro: Level of Consciousness is awake, alert, obeys commands, Oriented to person, place, time, situation, Appropriate for age. Cardiovascular: Patient's skin is warm and dry. Respiratory: Airway is patent Respiratory effort is even, unlabored, Respiratory pattern is regular, symmetrical. Derm: Wound noted left foot. Historical: - Allergies: 12:16 Codeine; me1 - PMHx: 12:16 Arthritis; Hypertensive disorder; Hypothyroidism; TIA (Tonsillectomy); me1 - PSHx: 12:16 Tonsillectomy; me1 - Immunization history:: Adult Immunizations up to date. - Infectious Disease History:: Denies. - Social history:: Smoking status: Patient denies any tobacco usage or history of. Screenin:21 [facility] ED Fall Risk Assessment (Adult) History of falling in the last 3 months, bp including since admission No falls in past 3 months (0 pts) Confusion or Disorientation No (0 pts) Intoxicated or Sedated No (0 pts) Impaired Gait No (0 pts) Mobility Assist Device Used No (0 pt) Altered Elimination No (0 pt) Score/Fall Risk Level 0 - 2 = Low Risk. Abuse screen: Denies threats or abuse. Denies injuries from another. Nutritional screening: No deficits noted. Tuberculosis screening: No symptoms or risk factors identified. Assessment: 12:15 General: Appears in no apparent distress. uncomfortable, Behavior is cooperative, bp appropriate for age, anxious. 13:22 Reassessment: No changes from previously documented assessment. Patient is alert, bp oriented x 3, equal unlabored respirations, skin warm/dry/pink. Vital Signs: 12:11 BP 106 / 57; Pulse 60; Resp 17; Temp 97; Pulse Ox 99% on R/A; Weight 58.06 kg; Height 5 me1 ft. 1 in. ; Pain 0/10; 13:21 BP 103 / 46; Pulse 57; Resp 16; Pulse Ox 95% ; bp 14:00 BP 115 / 93; Pulse 63; Resp 16; Pulse Ox 97% on R/A; me1 15:00 BP 107 / 70; Pulse 61; Resp 15; Pulse Ox 100% on R/A; me1 16:00 BP 121 / 65; Pulse 60; Resp 14; Pulse Ox 100% on R/A; me1 12:11 Body Mass Index 24.19 (58.06 kg, 154.94 cm) me1 12:11 Pain Scale: Adult me1 ED Course: 11:58 Patient arrived in ED. ra3 12:00 Francisco Benites MD is Attending Physician. ec2 12:16 Triage completed. me1 12:16 Arm band placed on Patient placed in an exam room. me1 12:24 Monika Adams, PRECIOUS is Primary Nurse. ko1 12:43 Head C Spine Mpr Wo Con In Process Unspecified. EDMS 12:53 CXR XRAY In Process Unspecified. EDMS 13:20 Inserted saline lock: 22 gauge in right wrist, using aseptic technique. Blood bp collected. Flushed with 10 mL NS. 13:21 Patient has correct armband on for positive identification. bp 14:10 Joshua Mcintyre MD is Hospitalizing Provider. ec2 Administered Medications: 13:20 Drug: NS 0.9% IV 1000 ml IV at 1 bolus Per protocol; 1000 mL bolus Route: IV; Rate: 1 bp bolus; Site: right wrist; 15:12 Follow up: Response: No adverse reaction; IV Status: Completed infusion me1 13:20 Drug: Ondansetron IVP 4 mg IVP once; over 2 minutes Route: IVP; Site: right wrist; bp 15:13 Follow up: Response: No adverse reaction; Nausea is decreased me1 Outcome: 14:10 Decision to Hospitalize by Provider. ec2 17:01 Patient left the ED. me1 Signatures: Dispatcher [employer] EDRobb Rodriguez RN RN Monika Adams RN RN ko1 Evelyne Pierre RN RN me1 Francisco Benites MD MD 2 Monae Gallagher 3
--- NOTE | 2023-11-05 15:59 | P.HP ---
Certification for Inpatient Patient admitted to: Inpatient With expected LOS: >2 Midnights Patient will require the following post-hospital care: None Practitioner: I am a practitioner with admitting privileges, knowledge of patient current condition, hospital course, and medical plan of care. Services: Services provided to patient in accordance with Admission requirements found in Title 42 Section 412.3 of the Code of Federal Regulations Patient History Date of Service: 11/05/23 Reason for admission: hyponatremia History of Present Illness: Janene Sierra is an 82-year-old female with past medical history of TIA, CHF, atrial fibrillation, hypothyroidism, arthritis, hypertension who presented to the ED with chief complaint of lethargy, weakness, fall out of bed. Family at bedside are good historians and report she started declining since the power outage occurred, approximately 4 to 5 days. Initial vitals BP 106 / 57; Pulse 60; Resp 17; Temp 97; Pulse Ox 99% on R/A Laboratory evaluation sodium 122, potassium 5.3, BUN/creatinine 29/1.27, GFR 43, troponin 16.0, lipase 94, left shift with neutrophils 75.9, TSH/free T4 0.919/2.04, UA pending. Chest x-ray reports No acute cardiopulmonary process. CT head cervical spine reports : No acute traumatic intracranial or cervical spine findings Janene will be admitted to hospitalist service for further evaluation and treatment. Allergies codeine Adverse Reaction (Verified 08/01/21 02:23) reaction unknown Home Medications: Calcium Carbonate [Tums Regular*] 500 mg PO DAILY 11/18/21 Levothyroxine [Synthroid*] 100 mcg PO DAILY 11/18/21 Apixaban [Eliquis] 5 mg PO BID #60 11/23/21 Spironolactone [Aldactone*] 25 mg PO BID #60 tab 11/23/21 Amiodarone HCl [Cordarone Tab] 200 mg PO DAILY 11/05/23 Olmesartan Medoxomil 40 mg PO DAILY 11/05/23 - Past Medical/Surgical History Diabetic: No -: Hypertension -: Hypothyroid -: Arthritis -: None Psychosocial/ Personal History: Patient lives at home with her family - Family History Mother -: Cancer Notes: pancreatic Cancer - Social History Alcohol use: No CD- Drugs: No Caffeine use: Yes Review of Systems General: Weakness Neurological: Weakness Physical Examination - Physical Exam General: In no apparent distress, Oriented x2, Other (lethargic) HEENT: Atraumatic, Normocephalic, PERRLA Neck: Supple, 2+ carotid pulse no bruit, JVD not distended Respiratory: Clear to auscultation bilaterally, Normal air movement Cardiovascular: Normal pulses, Regular rate/rhythm, Normal S1 S2 Capillary refill: <2 Seconds Gastrointestinal: Normal bowel sounds, Soft and benign, Non-distended, No tenderness Musculoskeletal: No clubbing Integumentary: No rashes Neurological: Normal speech, Normal tone - Studies Laboratory Data (last 24 hrs) 11/05/23 11/05/23 13:20 13:20 WBC 7.10 Hgb 13.8 Hct 40.3 Plt Count 266 Sodium 122 L Potassium 5.3 H BUN 29 H Creatinine 1.27 H Glucose 95 Total Bilirubin 0.5 AST 25 ALT 46 Alkaline Phosphatase 80 Lipase 94 H Assessment and Plan - Plan Assessment and plan Hyponatremia Hyperkalemia decreased PO intake -Dietary consult -Regular diet ordered -Gentle IV fluids -Monitor in a.m. labs -Replete as needed Ulcer to left heel -Compliance with wound care -Consult Dr. Yoder -Consult wound care -Appears to be healing KAYLEIGH -BUN/creatinine 29/1.27, GFR 43 -Gentle IV fluid Debilitation Fall lethargic -Physical therapy -Supportive care -CT head cervical spine reports : No acute traumatic intracranial or cervical spine findings History of TIA History of CHF History of atrial fibrillation History of hypothyroidism History of arthritis History of hypertension -Continue home medications when available and if appropriate -TSH/free T4 0.919/2.04 DVT PPx Eliquis Full code LOS 2 to 3 days Discharge Plan: Home - Advance Directives Does patient have a Living Will: No Does patient have a Durable POA for Healthcare: No
[2023-11-05] MEDS: NA CHLORIDE 0.9% 500 ML IV SCH (18:35)
[2023-11-05 19:27] LABS: Thyroid Stimulating Hormone 0.919 uIU/mL (0.358-3.740)
[2023-11-05] MEDS: SPIRONOLACTONE 25 MG TABLET PO SCH (21:00)
[2023-11-06 05:28] LABS: Absolute Eosinophils 0.2 K/uL (0-0.5); Absolute Lymphocytes (CBC) 0.8 K/uL (0.7-4.9); Absolute Monocytes 0.8 K/uL (0.1-1.3); Absolute Neutrophil 4.4 K/uL (1.8-8.0); Basophils % 0.7 % (0-1.3); Eosinophils % 2.7 % (0-4.4); Hematocrit 33.5 % (36.0-45.0); Hemoglobin 11.3 g/dL (12.0-15.0); Lymphocytes % 12.4 % (15.3-44.8); MCH 32.9 pg (27.0-35.0); MCHC 33.9 g/dL (32.0-36.0); MCV 96.9 fL (80-100); MPV 7.3 fL (7.6-11.3); Neutrophils % 71.2 % (41.7-73.7); Platelets 248 thou/uL (152-406); RBC Red Blood Cell Count 3.45 M/uL (3.86-4.86); Red Cell Distribution Width 12.4 % (12.1-15.2)
[2023-11-06 05:47] LABS: Anion Gap 12.8 mEq/L (5.0-15.0); Phosphorus 2.5 mg/dL (2.5-4.9); Potassium 4.8 mEq/L (3.5-5.1); Troponin High Sensitivity 15.9 pg/mL (<58.9)
[2023-11-06] MEDS: ACETAMINOPHEN 500 MG TAB PO PRN (06:09)
[2023-11-06] MEDS: VALSARTAN 160 MG TAB PO SCH (07:44)
[2023-11-06] MEDS: AMIODARONE HCL 200 MG TAB PO SCH (07:44)
[2023-11-06] MEDS: CALCIUM CARBONATE CHEW 500MG TAB PO SCH (07:44)
[2023-11-06] MEDS: LEVOTHYROXINE SOD 0.1 MG TAB PO SCH (07:45)
--- NOTE | 2023-11-06 13:26 | P.PN ---
Date of Service: 11/06/23 Subjective More awake, wearing glasses Daughter is at bedside, complaining of their mother being disturbed all night No new complaints ROS 10 point ROS as noted above, otherwise negative Physical Exam General: NAD, Oriented x2, Other (lethargic) HEENT: Atraumatic, Normocephalic, PERRLA Neck: Supple, 2+ carotid pulse no bruit, JVD not distended Respiratory: Clear to auscultation bilaterally, Normal air movement Cardiovascular: Normal pulses, RRR, Normal S1 S2 Capillary refill: <2 Seconds Gastrointestinal: Normal bowel sounds, Soft and benign on palpation, Non- distended, No tenderness Musculoskeletal: No clubbing Integumentary: No rashes Neurological: Normal speech, Normal tone Vitals Reviewed Problem list Hyponatremia Hyperkalemia decreased PO intake Ulcer to left heel KAYLEIGH Debilitation Fall at home lethargic History of TIA History of CHF History of atrial fibrillation History of hypothyroidism History of arthritis History of hypertension Assessment and Plan Hyponatremia Hyperkalemia decreased PO intake -Dietary consult- patient resting during RD visit, recommend easy to chew food -Regular minced diet ordered -Gentle IV fluids -Monitor in a.m. labs -Replete as needed, improved electrolytes Ulcer to left heel stage 1 pressure ulcer to -Compliance with wound care, addressed antibiotic -Consult Dr. Yoder -Consult wound care -Appears to be healing KAYLEIGH -BUN/creatinine 17/0.72, GFR 84 -Gentle IV fluid Debilitation Fall lethargic Multiple bruises likely 2/2 eliquis -Physical therapy- unable to move extremities, will require continued physical therapy -Supportive care -CT head cervical spine reports : No acute traumatic intracranial or cervical spine findings History of TIA History of CHF History of atrial fibrillation History of hypothyroidism History of arthritis History of hypertension -Continue home medications -TSH/free T4 0.919/2.04 -Continuous telemetry DVT PPx Eliquis Full code LOS 2 to 3 days Discharge Plan: Home, HH with SN and PT requested
[2023-11-06] MEDS: ENSURE ENLIVE 237 ML CAN PO SCH (14:42)
[2023-11-06] MEDS: NA CHLORIDE 0.9% 500 ML IV SCH (14:43)
[2023-11-06] MEDS: APIXABAN 5 MG TABLET PO SCH (20:42)
--- NOTE | 2023-11-06 21:40 | RAD REPORT ---
EXAM DESCRIPTION: CT - Abdomen Pelvis W Contrast - 11/06/2023 2:12 pm CLINICAL HISTORY: Abdominal fullness, anorexia. COMPARISON: Chest For Pe Angio dated 11/17/2021 TECHNIQUE: Thin cut axial CT imaging of the abdomen and pelvis was performed following intravenous a dministration of iodinated contrast. Multiplanar reformats were generated and reviewed. All CT scans are performed using dose optimization technique as appropriate and may include automated exposure control or mA/KV adjustment according to patient size. FINDINGS: No suspicious findings in the lung bases. Calcified right middle lobe 1 cm granuloma. The liver demonstrates an ovoid 3.6 x 2.2 cm hypoattenuating subcapsular lesion arising from the infe rior left lobe margin, with suggestion of mild enhancement along its posterior peripheral aspect. Lob ulated/ linear hypoattenuating lesions present within the right and left lobe. Adrenal glands, spleen , and pancreas show no suspicious findings. 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 G allbladder and biliary tree are also without suspicious finding. Symmetric renal function is seen with no hydronephrosis or suspicious renal mass. No dilated bowel loops or bowel wall thickening. No free air, free fluid or inflammatory stranding. N o hernia, mass or bulky lymphadenopathy. The urinary bladder is markedly distended, without significa nt focal findings. No suspicious bony findings. Dextroconvex lumbosacral scoliotic curvature. Transitional anatomy with enlargement of the right L5 transverse process. Mild colonic diverticulosis. Laterally noted small lipoma within the left iliopsoas tendon. IMPRESSION: No acute intra-abdominal process. Hypoattenuating lesions within the liver as above, the largest of which measures up to 3.6 cm, may re present an atypical cyst or hemangioma. If no prior imaging is available, these may deserve additiona l evaluation by hepatic protocol MRI. Markedly distended urinary bladder, without suspicious focal findings. Other incidental findings as above.
[2023-11-06 22:43] LABS: Specific Gravity 1.018 (1.005-1.030); Urine Bilirubin NEGATIVE (Negative); Urine Blood Negative (Negative); Urine Clarity Clear (Clear); Urine Color Light-Yellow (Yellow); Urine Glucose NEGATIVE (Negative); Urine Ketones NEGATIVE (Negative); Urine Microscopic Reflex YN NO UMIC; Urine Nitrite NEGATIVE (Negative); Urine Protein NEGATIVE (Negative); Urine Urobilinogen Normal (Normal); Urine pH 5.5 (5.0-7.0)
[2023-11-07] MEDS: LEVOTHYROXINE SOD 0.075 MG TAB PO SCH (05:54)
[2023-11-07] MEDS ORDERED: CETIRIZINE HCL 5 MG TABLET PO PRN (09:11)
[2023-11-07 09:14] LABS: Absolute Eosinophils 0.2 K/uL (0-0.5); Absolute Neutrophil 5.2 K/uL (1.8-8.0); Basophils % 0.6 % (0-1.3); Eosinophils % 3.3 % (0-4.4); Hematocrit 37.2 % (36.0-45.0); Hemoglobin 12.4 g/dL (12.0-15.0); Lymphocytes % 13.1 % (15.3-44.8); MCHC 33.4 g/dL (32.0-36.0); MCV 98.8 fL (80-100); MPV 7.7 fL (7.6-11.3); Monocytes % 13.1 % (3.3-12.3); Neutrophils % 69.9 % (41.7-73.7); Platelets 258 thou/uL (152-406); RBC Red Blood Cell Count 3.76 M/uL (3.86-4.86); Red Cell Distribution Width 12.5 % (12.1-15.2)
[2023-11-07 09:15] LABS: Anion Gap 11.6 mEq/L (5.0-15.0); Magnesium 1.9 mg/dL (1.6-2.4); Phosphorus 2.1 mg/dL (2.5-4.9); Potassium 4.6 mEq/L (3.5-5.1)
[2023-11-07] MEDS: TAMSULOSIN 0.4 MG SR CAP PO SCH (11:07)
--- NOTE | 2023-11-07 16:45 | P.PN ---
Date of Service: 11/07/23 Subjective Awake and conversing this AM Eating some breakfast multiple discussions with the family throughout the day concerns addressed: maintaining sodium level at home need care for richard catheter reduced PO intake Alcohol cessation to help correct sodium level ROS 10 point ROS as noted above, otherwise negative Physical Exam General: NAD, Awake, alert, and Oriented x2 HEENT: Atraumatic, Normocephalic, PERRLA Neck: Supple, 2+ carotid pulse no bruit, JVD not distended Respiratory: Clear to auscultation bilaterally, symmetrical chest wall movement, on room air Cardiovascular: Normal pulses, NSR, Normal S1 S2 Capillary refill: <2 Seconds Gastrointestinal: Normal bowel sounds, Soft on palpation, Non-distended, No tenderness Musculoskeletal: No clubbing Integumentary: No rashes Neurological: Normal speech, Normal tone Vitals Reviewed Problem list Hyponatremia Hyperkalemia decreased PO intake Alcohol abuse Ulcer to left heel KAYLEIGH Debilitation Fall at home lethargic History of TIA History of CHF History of atrial fibrillation History of hypothyroidism History of arthritis History of hypertension Assessment and Plan Hyponatremia Hyperkalemia decreased PO intake Alcohol abuse -Dietary consult- patient resting during RD visit, recommend easy to chew food -Regular minced diet ordered -Gentle IV fluids with improved sodium -Monitor in a.m. labs -Replete as needed, improved electrolytes -family reports multiple beer consumption nightly -Beer consumtion likely responsible for hyponatremia -Cessation education provided Ulcer to left heel stage 1 pressure ulcer to -Compliance with wound care, addressed antibiotic -Consult Dr. Yoder -Consult wound care -Appears to be healing KAYLEIGH -BUN/creatinine 17/0.72, GFR 84 -Gentle IV fluid Debilitation Fall lethargic Multiple bruises likely 2/2 eliquis -Physical therapy- unable to move extremities, will require continued physical therapy -Supportive care -CT head cervical spine reports : No acute traumatic intracranial or cervical spine findings History of TIA History of CHF History of atrial fibrillation History of hypothyroidism History of arthritis History of hypertension -Continue home medications -TSH/free T4 0.919/2.04 -Continuous telemetry DVT PPx Eliquis Full code LOS 2 to 3 days Discharge Plan: Home, HH with SN and PT requested
[2023-11-08] MEDS: LEVOTHYROXINE SOD 0.088 MG TAB PO SCH (06:10)
[2023-11-08 06:28] LABS: Absolute Eosinophils 0.2 K/uL (0-0.5); Absolute Lymphocytes (CBC) 0.9 K/uL (0.7-4.9); Absolute Monocytes 0.8 K/uL (0.1-1.3); Absolute Neutrophil 4.3 K/uL (1.8-8.0); Basophils % 0.7 % (0-1.3); Eosinophils % 2.6 % (0-4.4); Hematocrit 32.4 % (36.0-45.0); Hemoglobin 10.9 g/dL (12.0-15.0); Lymphocytes % 14.1 % (15.3-44.8); MCH 32.7 pg (27.0-35.0); MCHC 33.7 g/dL (32.0-36.0); MCV 97.1 fL (80-100); MPV 7.4 fL (7.6-11.3); Monocytes % 12.8 % (3.3-12.3); Neutrophils % 69.8 % (41.7-73.7); Platelets 232 thou/uL (152-406); RBC Red Blood Cell Count 3.34 M/uL (3.86-4.86); Red Cell Distribution Width 12.7 % (12.1-15.2)
[2023-11-08 06:46] LABS: Magnesium 1.9 mg/dL (1.6-2.4); Phosphorus 2.6 mg/dL (2.5-4.9)
[2023-11-08] MEDS: MINERAL OIL 30 ML UCUP PO ONE (09:50)
--- NOTE | 2023-11-08 14:55 | P.DS ---
Admission Date: 11/05/23 Discharge Date: 11/09/23 Disposition: DC HOME/HOME HEALTH CARE Discharge Condition: GOOD Reason for Admission: hyponatremia Brief History of Present Illness: Diagnosis Hyponatremia Hyperkalemia decreased PO intake Alcohol abuse Stage III pressure ulcer to left medial heel KAYLEIGH Debilitation Fall at home lethargic History of TIA History of CHF History of atrial fibrillation History of hypothyroidism History of arthritis History of hypertension HPI 11/05/23 Janene Sierra is an 82-year-old female with past medical history of TIA, CHF, atrial fibrillation, hypothyroidism, arthritis, hypertension who presented to the ED with chief complaint of lethargy, weakness, fall out of bed. Family at bedside are good historians and report she started declining since the power outage occurred, approximately 4 to 5 days. Initial vitals BP 106 / 57; Pulse 60; Resp 17; Temp 97; Pulse Ox 99% on R/A Laboratory evaluation sodium 122, potassium 5.3, BUN/creatinine 29/1.27, GFR 43, troponin 16.0, lipase 94, left shift with neutrophils 75.9, TSH/free T4 0.919/2.04, UA pending. Chest x-ray reports No acute cardiopulmonary process. CT head cervical spine reports : No acute traumatic intracranial or cervical spine findings Janene will be admitted to hospitalist service for further evaluation and treatment. Hospital Course: Janene Sierra is a pleasant 82 year old female with a past medical history significant for TIA, CHF, atrial fibrillation, hypothyroidism, arthritis, hypertension who was admitted to the [facility] on 11/05/23 for lethargy, weakness, and fall out of bed. Janene presented to the ED in a lethargic state. Her daughter, Jeanie, lives with her and has taken care of her for several years. She was concerned that her mother has decreased PO intake, not urinated, or had a bowel movement in several days. During this admission she was found to have hyponatremia and was given gentle IVF allowing her to wake up and converse with her family and staff. Her family stated she drinks several beers every night with her son. This, in combination with decreased PO intake seems to be the driving force behind her hyponatremia. She was found to have urianary retention requiring a straight catheter to drain her bladder. She was provided a richard catheter to allow her bladder to rest and flomax was started. The family was given instructions to follow up with Dr. Mora in two weeks. The family also reported a recent change in her levothyroxine dosage, prescription was provided with a slight decrease to that new dosage. She has tolerated a minced diet with ensure. Plans were made to provide small frequent meals of food and ensure that she enjoys. She will be discharged with to attend to her further needs with prison and wound care. On 11/08/23, Janene was seen on morning rounds and deemed medically stable for discharge. Janene was discharged with instructions to schedule follow-up appointments with Dr. Mora, Dr. Yoder (wound care), and PCP. Janene was provided prescriptions for levothyroxine, flomax, and miralax. The patient and family members were given the opportunity to ask questions and reported no further questions. Furthermore, all questions were answered to the best of my ability. Physical Exam General: AAO x2, no acute distress HEENT: Atraumatic, Normocephalic, PERRLA Neck: Supple, 2+ carotid pulse no bruit, JVD not distended Respiratory: bilaterally clear breath sounds, symmetrical chest wall movement, on room air Cardiovascular: Normal pulses, regular rate and rhythm, Normal S1 S2 Capillary refill: <2 Seconds Gastrointestinal: Normal bowel sounds, Soft, Non-distended, No tenderness Musculoskeletal: No clubbing Integumentary: No rashes Neurological: Normal speech, Normal tone Vital Signs/Physical Exam: Temp Pulse Resp BP Pulse Ox 97.6 F 61 16 137/61 97 11/08/23 12:00 11/08/23 12:00 11/08/23 12:00 11/08/23 12:00 11/08/23 12:00 Laboratory Data at Discharge: WBC 6.20 thou/uL (4.3-10.9) 11/08/23 06:15 Hgb 10.9 g/dL (12.0-15.0) L D 11/08/23 06:15 Hct 32.4 % (36.0-45.0) L 11/08/23 06:15 Plt Count 232 thou/uL (152-406) 11/08/23 06:15 Sodium 130 mEq/L (136-145) L 11/08/23 06:15 Potassium 5.0 mEq/L (3.5-5.1) 11/08/23 06:15 BUN 16 mg/dL (7-18) 11/08/23 06:15 Creatinine 1.08 mg/dL (0.55-1.02) H 11/08/23 06:15 Glucose 98 mg/dL (74-106) 11/08/23 06:15 Phosphorus 2.6 mg/dL (2.5-4.9) 11/08/23 06:15 Magnesium 1.9 mg/dL (1.6-2.4) 11/08/23 06:15 Total Bilirubin 0.5 mg/dL (0.2-1.0) 11/05/23 13:20 AST 25 U/L (15-37) 11/05/23 13:20 ALT 46 U/L (13-56) 11/05/23 13:20 Alkaline Phosphatase 80 U/L (45-117) 11/05/23 13:20 Triglycerides 152 mg/dL (<150) H 11/06/23 05:09 Cholesterol 168 mg/dL (<200) 11/06/23 05:09 HDL Cholesterol 35 mg/dL (40-60) L 11/06/23 05:09 Cholesterol/HDL Ratio 4.80 11/06/23 05:09 Lipase 94 U/L (13-75) H 11/05/23 13:20 Home Medications: Calcium Carbonate [Tums Regular*] 500 mg PO DAILY 11/18/21 Apixaban [Eliquis] 5 mg PO BID #60 11/23/21 Spironolactone [Aldactone*] 25 mg PO BID #60 tab 11/23/21 Amiodarone HCl [Cordarone*] 200 mg PO DAILY 11/05/23 Olmesartan Medoxomil 40 mg PO DAILY 11/05/23 Ensure Enlive 237 ml PO TID can 11/08/23 Levothyroxine [Synthroid*] 0.088 mg PO DAILYAC 30 Days #30 tab 11/08/23 Polyethylene Glycol 3350 [Miralax] 17 gm PO BID PRN #30 packet 11/08/23 Tamsulosin [Flomax*] 0.4 mg PO DAILY 30 Days #30 cap 11/08/23 New Medications: Tamsulosin [Flomax*] 0.4 mg PO DAILY 30 Days #30 cap Polyethylene Glycol 3350 [Miralax] 17 gm PO BID PRN #30 packet PRN Reason: Constipation Levothyroxine [Synthroid*] 0.088 mg PO DAILYAC 30 Days #30 tab Physician Discharge Instructions: Janene Sierra was treated for low sodium level. This can cause drowsiness. She has also experienced decreased PO intake and constipation associated with urinary retention. Please encourage increased food and nutritious Ensure intake. Please stop drinking beer nightly while sodium level regulates. Janene is being discharged with a richard catheter in place due to urinary retention. Please follow up with Dr. Mora for further management. Tamsulosin was called into your pharmacy. Your levothyroxine dose was changed and called into your pharmacy. 1. Please call and schedule a follow-up appointment with your PCP in 3-5 days - Please follow-up with your PCP for medication refills/adjustments -Levothyroxine dose changed to 0.088mg. 2. Please call and schedule a follow-up appointment with Dr. Mora for urinary retention management -leave richard catheter in place until seen by Dr. Mora -Richard catheter management 3. Continue Regular diet, include Ensure Enlive twice daily, please stop drinking beer nightly to allow your sodium to recover -Please schedule small meals and ensure through out the day. Offer easy to chewy items and options she enjoys. 4. activity restrictions, fall precautions 5. Return to the ED if symptoms worsen New medications Tamsulosin 0.5 mg daily New medication dose Levothyroxine 0.088 mg daily Home Health arranged: [facility] [place] P:[phone] F:[phone] Diet: Regular Activity: Fall precautions Followup: Thad Yoder MD [ACTIVE - CAN ADMIT] - 11/13/23 (Follow up at [facility]) Andrea Mora [ACTIVE - CAN ADMIT] - (Follow up in 2 weeks. Call for appointment)
[2023-11-08 15:41] VITALS: BP 137/61; TEMP 97.6; O2SAT 99; BMI 24.5
== END 2023-11-08 16:57 | disposition home health service (06) | DRG 640 ==
LOC: ER 11:54 → ERHOLD 16:05 → 4TH 16:14
PROVIDERS: ADMIT Hospitalist; ATTEND Internal Medicine
PROC: 0T9B70Z Drainage of Bladder with Drainage Device, Via Natural or Artificial Opening (ICD-10-PCS; principal; 2023-11-07)
DX: E87.1 Hypo-osmolality and hyponatremia (principal); L89.623 Pressure ulcer of left heel, stage 3; E44.0 Moderate protein-calorie malnutrition; N17.9 Acute kidney failure, unspecified; E03.9 Hypothyroidism, unspecified; K59.00 Constipation, unspecified; M19.90 Unspecified osteoarthritis, unspecified site; I10 Essential (primary) hypertension; F10.10 Alcohol abuse, uncomplicated; E87.5 Hyperkalemia; I48.91 Unspecified atrial fibrillation; R33.9 Retention of urine, unspecified; Z88.5 Allergy status to narcotic agent; Z79.01 Long term (current) use of anticoagulants; Z68.24 Body mass index [BMI] 24.0-24.9, adult; Z86.73 Personal history of transient ischemic attack (TIA), and cerebral infarction without residual deficits; Z79.890 Hormone replacement therapy; Z79.899 Other long term (current) drug therapy; W06.XXXA Fall from bed, initial encounter; Y93.9 Activity, unspecified; Y92.9 Unspecified place or not applicable; Y99.9 Unspecified external cause status
CPT/HCPCS: 36415; 70450; 71045; 72125; 74177; 80048; 80053; 80061; 81003; 83690; 83735; 84100; 84439; 84443; 84484; 85025; 96361; 96374; 97110; 97161; 97530; 99284; J2405; J7030; J7040; Q9967